=== PATIENT | male | born 1960 | race Caucasian/White ===

== ENCOUNTER → 2018-05-15 | Outpatient (CLI) | payer OTHER ==
[~2018-05-15] MED LIST: ABILIFY PO; ACET325 PO; ACET500 PO; ALBIPROI; ALBIPROI INH; ALBU.083IS IH; ALBU90I INH; ALBU90OI61 INH; ARIP15 PO; ARIP30 PO; ASPI325 PO; ASPI325EC; ASPI81CH PO; ATOM40; AZIT500 PO; BISA10S PR; BUME2 PO; BUSP15; CEFD300 PO; CEPH500 PO; CHOL10002 PO; CLAR500 PO; CLIN300 PO; CLORAZEPATE PO; COMBIVENT RESPIM4 GM INH; CYCL10 PO; DARB200I SQ; DEXGUASY; DIGO.125 PO; DIGO.25 PO; DOC250; DOC250 PO; DOCU100 PO; DOXY100 PO; DULO60 PO; Dok Plus Table1 EACH PO; FERREX 28 TABL1 EACH PO; FERSU250ER PO; FISH1000 PO; FLUSAL1005 IH; FLUSAL1005 INH; FLUSAL5005; FLUSAL5005 IH; FLUSAL5005 INH; FLUT.05NI; FLUT220OIA IH; FOLI1 PO; FURO20 PO; FURO40 PO; FURO80; Fleet Enema132 ML PR; Flonase 0.05% N16 GM; Flovent Diskus50 MCG IH; HALO2 PO; HALO5 PO; HYDACE5 PO; HYDCOR1TC TOP; HYDPAM25 PO; HYDROXYPAM PO; IBUP600 PO; IBUP800; IBUP800 PO; K PHOS PO; K-Phos Origina500 MG PO; KPHOS PO; LACT10SY; LACT10SY PO; LEVFLO500 PO; LEVO750 PO; LISI20 PO; LORA.5 PO; LORA10ER PO; LORA2 PO; LOSA50 PO; MELA3 PO; METF500 PO; METH5; METO5A PO; MIGRELIEF CAPL1 EACH PO; MOM; MORP15ER PO; MS Contin15 MG PO; MULVITB PO; MULVITMIND PO; Micro-K10 MEQ PO; NICO14TP TOP; NICO2 PO; NICO21TP TOP; NORT25; Norco 5-325 Ta1 EACH PO; OLAN20 MM; OMEP20ER PO; OMEPRAZOLE MAGN20 MG PO; OXYGEN; OXYGEN USE; OXYM.05NI; PANT40 PO; PHENYTOIN SODI200 MG PO; POTA10T PO; PRED10 PO; PREG150 PO; PREG50 PO; PROAIR INHALER INH; PROCTOZONE CREAM; PSYL5.85P PO; PT DOESN'T KNOW MEDS; Phospha 250 Ne250 MG PO; Prilosec Otc20 MG PO; Proctocort30 MG RC; Proctosol HC30 GM PR; QUET100; REPLIVA PO; RISP.5 PO; RISP2; RISP2 PO; RISP3 PO; RISP4; Risperidone3 MG PO; SENNP; SENNP PO; SIME40L; SIMV10 PO; SODCHL.65S; SPIR25; SPIR25 PO; SPIR50 PO; SPIRIVA INH; SUMA25 PO; TIOT18 IH; TIOT18 INH; TRIXAICIN TP; VALS80 PO; VENL150ER PO; VENL75ER; Ventolin5 MG/1 ML INH; WARF1 PO; WARF3 PO; WARF4 PO; [UNRECOGNIZED DRUG - OTHER]; [UNRECOGNIZED DRUG - OTHER] TOP; [UNRECOGNIZED DRUG - OTHER] TP; [UNRECOGNIZED DRUG - REMARK]
[2018-05-15 16:13] LABS: Appearance, Urine Clear (Clear); Bilirubin, Urine Neg (Neg); Blood, Urine Neg (Neg); Color, Urine Yellow (P-Yellow); Glucose Qualitative, Urine Neg (Neg); Ketones, Urine Neg (Neg); Leukocyte Esterase, Urine Neg (Neg); Nitrite, Urine Neg (Neg); Protein, Urine Neg (Neg); Specific Gravity, Urine 1.005 (1.003-1.022); Urobilinogen, Urine NORM (Normal)
== END | disposition home or self-care (01) ==
LOC: LAB 12:30 → LAB SHORT 12:30
PROVIDERS: Registered Nurse
DX: Z00.00 Encounter for general adult medical examination without abnormal findings (principal); Z12.5 Encounter for screening for malignant neoplasm of prostate; Z13.6 Encounter for screening for cardiovascular disorders; I10 Essential (primary) hypertension; R35.0 Frequency of micturition
CPT/HCPCS: 81003

== ENCOUNTER → 2018-08-11 | Outpatient (CLI) | payer OTHER ==
[2018-08-13 13:54] LABS: Stool Occult Blood Guaiac 1 Neg (Neg)
[2018-08-13 13:55] LABS: Stool Occult Blood Guaiac 2 Neg (Neg); Stool Occult Blood Guaiac 3 Neg (Neg)
== END | disposition home or self-care (01) ==
LOC: LAB SHORT 15:03 → LAB 15:03
PROVIDERS: Registered Nurse
DX: K92.1 Melena (principal)
CPT/HCPCS: 82270

== ENCOUNTER 2018-11-14 09:13 | Inpatient (IN) | payer OTHER ==
[~2018-11-14] VITALS: Ht 175.3 cm; Wt 110.4 kg
[2018-11-14] MEDS ORDERED: CETI5 PO (09:46)
[2018-11-14] MEDS ORDERED: GABA600 PO (09:47)
[2018-11-14] MEDS ORDERED: Advair Hfa 230-12 GM (09:47)
[2018-11-14] MEDS ORDERED: LISI20 (09:48)
[2018-11-14] MEDS ORDERED: METO5A PO (09:49)
[2018-11-14] MEDS ORDERED: LISI20 PO (09:49)
[2018-11-14 09:51] LABS: BASOPHILS ABSOLUTE AUTO 0.16 K/mm3 (0.00-0.23); BASOPHILS PERCENT AUTO 0 % (0-2); EOSINOPHILS ABSOLUTE AUTO 0.01 K/mm3 (0.00-0.68); EOSINOPHILS PERCENT AUTO 0 % (0-6); Hematocrit 46.8 % (37.0-53.0); Hemoglobin 15.1 g/dL (13.5-17.5); IMMATURE GRAN ABSOLUTE AUTO 0.82 K/mm3 (0.00-0.10); IMMATURE GRAN PERCENT AUTO 2 % (0-1); LYMPHOCYTES ABSOLUTE AUTO 2.05 K/mm3 (0.84-5.20); LYMPHOCYTES PERCENT AUTO 6 % (21-46); MONOCYTES ABSOLUTE AUTO 2.27 K/mm3 (0.16-1.47); MONOCYTES PERCENT AUTO 6 % (4-13); Mean Corpuscular HGB 30.7 pg (26.0-34.0); Mean Corpuscular HGB Conc 32.3 g/dL (31.5-36.5); Mean Corpuscular Volume 95 fL (80-100); Mean Platelet Volume 10.3 fL (9.1-12.4); NEUTROPHILS ABSOLUTE AUTO 30.92 K/mm3 (1.96-9.15); NEUTROPHILS PERCENT AUTO 85 % (41-73); Platelet Count 322 K/mm3 (150-400); RDW Coefficient Variation 14.1 % (11.7-14.2); Red Blood Cell Count 4.92 M/mm3 (4.30-5.90); White Blood Cell Count 36.23 K/mm3 (4.00-11.30)
[2018-11-14] MEDS ORDERED: POTA8 PO (09:51)
[2018-11-14] MEDS ORDERED: PANT40 PO (09:51)
[2018-11-14] MEDS ORDERED: RISP2 PO (09:51)
[2018-11-14 10:01] LABS: Alanine Aminotransfer (ALT/SGP 17 U/L (12-78); Albumin, Blood 2.9 g/dL (3.4-5.0); Albumin/Globulin Ratio 0.7 (0.8-1.8); Alk Phos 52 U/L (50-136); Anion Gap 7 mmol/L (6-16); Aspartate Aminotrans (AST/SGOT 16 U/L (12-37); Bilirubin, Total 0.9 mg/dL (0.1-1.0); Blood Urea Nitrogen 12 mg/dL (8-24); Bun/Creatinine Ratio 12.6 (12.0-20.0); CO2, Blood 27 mmol/L (21-32); Chloride, Blood 100 mmol/L (98-108); Creatinine, Blood 0.95 mg/dL (0.60-1.20); Globulin, Blood 4.1 g/dL (2.2-4.0); Glomerular Filtration Rate >60 (60-); Glucose, Blood 160 mg/dL (70-99); Potassium, Blood 4.3 mmol/L (3.5-5.5); Sodium, Blood 134 mmol/L (136-145)
[2018-11-14 10:44] LABS: International Normalized Ratio 1.05; Prothrombin Time Results 10.8 Sec (9.7-11.5)
[2018-11-14] MEDS ORDERED: TORS10 PO (17:46)
[2018-11-14] MEDS ORDERED: ACET325 PO (17:58)
[2018-11-14] MEDS ORDERED: Antacid Maximu355 ML PO (18:00)
[2018-11-14] MEDS ORDERED: BISA10S PR (18:02)
[2018-11-14] MEDS ORDERED: FISH OIL 1,0001 EAC1 PO (18:04)
[2018-11-14] MEDS ORDERED: CVS DISPOSABLE399 ML PR (18:04)
[2018-11-14] MEDS ORDERED: FURO20 PO (18:10)
[2018-11-14] MEDS ORDERED: MIRALAX17 GM PO (18:11)
[2018-11-14] MEDS ORDERED: HALO.5 PO (18:11)
[2018-11-14] MEDS ORDERED: MELATONIN10 MG PO (18:15)
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
[2018-11-14 23:40] LABS: Source, Urine Voided
[2018-11-15 00:03] LABS: Appearance, Urine Clear (Clear); Bilirubin, Urine Neg (Neg); Blood, Urine 2+ (Neg); Color, Urine Yellow (P-Yellow); Glucose Qualitative, Urine Neg (Neg); Ketones, Urine Neg (Neg); Leukocyte Esterase, Urine Neg (Neg); Nitrite, Urine Neg (Neg); Protein, Urine Neg (Neg); Urobilinogen, Urine NORM (Normal)
[2018-11-15 00:04] LABS: Bacteria Few /hpf; Squamous Epithelial Cells Not Seen /hpf (Few); White Blood Cells, Urine 0-2 /hpf (0-5)
[2018-11-15 05:11] LABS: BASOPHILS PERCENT AUTO 0 % (0-2); EOSINOPHILS PERCENT AUTO 0 % (0-6); Hematocrit 42.8 % (37.0-53.0); Hemoglobin 13.9 g/dL (13.5-17.5); IMMATURE GRAN ABSOLUTE AUTO 0.18 K/mm3 (0.00-0.10); IMMATURE GRAN PERCENT AUTO 1 % (0-1); LYMPHOCYTES ABSOLUTE AUTO 2.98 K/mm3 (0.84-5.20); LYMPHOCYTES PERCENT AUTO 10 % (21-46); MONOCYTES PERCENT AUTO 6 % (4-13); Mean Corpuscular HGB 30.8 pg (26.0-34.0); Mean Corpuscular HGB Conc 32.5 g/dL (31.5-36.5); Mean Corpuscular Volume 95 fL (80-100); Mean Platelet Volume 10.2 fL (9.1-12.4); NEUTROPHILS PERCENT AUTO 82 % (41-73); Platelet Count 313 K/mm3 (150-400); RDW Coefficient Variation 14.3 % (11.7-14.2); RDW Standard Deviation 49.3 fL (35.1-46.3); Red Blood Cell Count 4.51 M/mm3 (4.30-5.90); White Blood Cell Count 29.26 K/mm3 (4.00-11.30)
[2018-11-15 05:40] LABS: Anion Gap 5 mmol/L (6-16); Blood Urea Nitrogen 8 mg/dL (8-24); Bun/Creatinine Ratio 10.6 (12.0-20.0); CO2, Blood 28 mmol/L (21-32); Calcium, Blood 7.9 mg/dL (8.5-10.1); Chloride, Blood 107 mmol/L (98-108); Creatinine, Blood 0.76 mg/dL (0.60-1.20); Glomerular Filtration Rate >60 (60-); Glucose, Blood 101 mg/dL (70-99); Potassium, Blood 3.9 mmol/L (3.5-5.5); Sodium, Blood 140 mmol/L (136-145)
--- NOTE | 2018-11-15 06:29 | NUR ---
*SHIFT SUMMARY* PATIENT IS ALERT AND ORIENTED TO SELF AND PLACE. PATIENT USES CALL LIGHT APPROPRIATELY. PATIENT USES URINAL AT BEDSIDE WITH ASSISTANCE. PATIENT REQUESTED THAT RESPIRATORY THERAPY NOT BE WOKEN UP FOR 0300 NEB TREATMENT. PATIENT AWOKE THIS AM SOB REQUESTING A BREATHING TREATMENT. RESPIRATORY CAME AND EVALUATED PATIENT. PATIENT WAS PLACED ON AN OXIMIZER. PATIENT REQUESTED PRN PAIN MEDICATION TWICE THROUGHOUT SHIFT SEE EMAR. PATIENTS BED ALARM IS LOWERED AND LOCKED WITH CALL LIGHT IN REACH.
--- NOTE | 2018-11-15 18:48 | NUR ---
SHIFT SUMMARY: NO ACUTE CHANGES TO REPORT THIS SHIFT. PT A&O; CALM AND COOPERATIVE WITH CARE. MEDICATED FOR PAIN PER EMAR. FAMILY IN ROOM THIS MORNING. PT UP TO BSC WITH ONE ASSIST. 5L O2 VIA OXYMIZER. PT USES URINAL @ BEDSIDE. IV ABX CONTINUING. REPORT GIVEN TO ONCOMING RN.
--- NOTE | 2018-11-16 05:27 | NUR ---
*SHIFT SUMMARY* PATIENT IS ALERT AND CONFUSED AT TIMES. PATIENT'S SPEECH IS SLOW TO RESPOND, THIS IS PATIENTS BASELINE. PATIENT USES A URINAL AT BEDSIDE WITH SBA. BED ALARM ON, CALL LIGHT WITHIN REACH. PATIENT IS ON AN OXIMIZER. PATIENT SLEPT THROUGHOUT THE NIGHT. NO NEW ACUTE CHANGES TO PATIENT'S STATUS. CALL LIGHT WITHIN REACH, PATIENT USES CALL LIGHT APPROPRIATELY. BED LOWERED AND LOCKED.
[2018-11-16 05:47] LABS: BASOPHILS ABSOLUTE AUTO 0.09 K/mm3 (0.00-0.23); BASOPHILS PERCENT AUTO 1 % (0-2); EOSINOPHILS ABSOLUTE AUTO 0.28 K/mm3 (0.00-0.68); EOSINOPHILS PERCENT AUTO 2 % (0-6); Hemoglobin 14.1 g/dL (13.5-17.5); IMMATURE GRAN ABSOLUTE AUTO 0.07 K/mm3 (0.00-0.10); IMMATURE GRAN PERCENT AUTO 0 % (0-1); LYMPHOCYTES ABSOLUTE AUTO 3.97 K/mm3 (0.84-5.20); LYMPHOCYTES PERCENT AUTO 21 % (21-46); MONOCYTES ABSOLUTE AUTO 1.82 K/mm3 (0.16-1.47); MONOCYTES PERCENT AUTO 10 % (4-13); Mean Corpuscular HGB 29.9 pg (26.0-34.0); Mean Corpuscular HGB Conc 31.3 g/dL (31.5-36.5); Mean Corpuscular Volume 96 fL (80-100); Mean Platelet Volume 10.3 fL (9.1-12.4); NEUTROPHILS ABSOLUTE AUTO 12.28 K/mm3 (1.96-9.15); NEUTROPHILS PERCENT AUTO 66 % (41-73); Platelet Count 376 K/mm3 (150-400); RDW Coefficient Variation 14.6 % (11.7-14.2); RDW Standard Deviation 51.6 fL (35.1-46.3); Red Blood Cell Count 4.71 M/mm3 (4.30-5.90); White Blood Cell Count 18.51 K/mm3 (4.00-11.30)
[2018-11-16 06:33] LABS: Anion Gap 6 mmol/L (6-16); Blood Urea Nitrogen 5 mg/dL (8-24); Bun/Creatinine Ratio 7.6 (12.0-20.0); CO2, Blood 27 mmol/L (21-32); Calcium, Blood 8.7 mg/dL (8.5-10.1); Chloride, Blood 107 mmol/L (98-108); Creatinine, Blood 0.66 mg/dL (0.60-1.20); Glomerular Filtration Rate >60 (60-); Glucose, Blood 97 mg/dL (70-99); Sodium, Blood 140 mmol/L (136-145)
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
[2018-11-17 05:14] LABS: BASOPHILS ABSOLUTE AUTO 0.11 K/mm3 (0.00-0.23); BASOPHILS PERCENT AUTO 1 % (0-2); EOSINOPHILS ABSOLUTE AUTO 0.42 K/mm3 (0.00-0.68); EOSINOPHILS PERCENT AUTO 4 % (0-6); Hematocrit 46.5 % (37.0-53.0); Hemoglobin 14.7 g/dL (13.5-17.5); IMMATURE GRAN ABSOLUTE AUTO 0.03 K/mm3 (0.00-0.10); IMMATURE GRAN PERCENT AUTO 0 % (0-1); LYMPHOCYTES ABSOLUTE AUTO 3.42 K/mm3 (0.84-5.20); LYMPHOCYTES PERCENT AUTO 31 % (21-46); MONOCYTES ABSOLUTE AUTO 1.25 K/mm3 (0.16-1.47); MONOCYTES PERCENT AUTO 11 % (4-13); Mean Corpuscular HGB 30.6 pg (26.0-34.0); Mean Corpuscular HGB Conc 31.6 g/dL (31.5-36.5); Mean Corpuscular Volume 97 fL (80-100); NEUTROPHILS ABSOLUTE AUTO 5.91 K/mm3 (1.96-9.15); NEUTROPHILS PERCENT AUTO 53 % (41-73); Platelet Count 396 K/mm3 (150-400); RDW Coefficient Variation 14.7 % (11.7-14.2); RDW Standard Deviation 53.2 fL (35.1-46.3); White Blood Cell Count 11.14 K/mm3 (4.00-11.30)
--- NOTE | 2018-11-17 06:50 | NUR ---
*SHIFT SUMMARY* PATIENT ALERT AND ORIENTED TO SELF. PATIENT REQUESTED PAIN MEDICATION TWICE FOR HEADACHE. PATIENT IS A SBA TO USE URINAL. PATIENT USES CALL LIGHT APPROPRIATELY. PATIENT SLEPT WELL THROUGHOUT THE NIGHT. NO NEW CHANGES IN STATUS PATIENT IS STILL ON 5L WITH OXIMIZER. PATIENT SEEMS TO COUGH A LOT WITH SWALLOWING. WILL PASS ALONG TO DAYSHIFT RN TO REQUEST A SPEECH EVALUATION. CALL LIGHT WITHIN REACH, BED LOWERED AND LOCKED. WITH ALARM ON.
--- NOTE | 2018-11-17 13:24 | NUR ---
Sukhdev was alert, friendly and talkative. No indications of physical pain or anxiety. He responded favorably to social attention, humor and inspirational encouragement. Fidel adheres to a conventional gnosticist framework of understanding with standard modes of expression and practice. He is knowledgeable of the scripture, and enjoys discussing theology and life. I provided active listening, pastoral companionship and audible prayer for restored strength, healing and peace. Fidel verbalized appreciation.
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
--- NOTE | 2018-11-17 17:20 | NUR ---
AMBULATE IN [place]UT[place] WITH PT, OXIMIZER ON @ 2L. PT WALKS W LIMP D/T OLD INJURY, AMBULATE APPROX 200 FT, MILDLY SOB HOWEVER BIOX 90-93%, PLACED ON RA, BIOX CONT 90-94%, WILL CONT ON RA & MX.
--- NOTE | 2018-11-18 04:46 | NUR ---
SHIFT SUMMARY: PT IS ALERT AND ORIENTED. PT IS CALM AND COOPERATIVE WITH CARE. PT CALLS APPROPRIATELY. PT IS A STANDBY ASSIST FOR TRANSFERS. PT REPORTS GEORGE PAIN, GAVE PRN TYLENOL. PT REQUESTED SLEEP AID, GAVE PRN MELATONIN. PT REPORTS SOB UPON EXERTION, O2 2 L PRN. PT DENIES NAUSEA AND VOMITING. PT SLEPT MUCH OF THE NIGHT WHEN NOT DISTURBED. NO ACUTE CHANGES OR COMPLICATIONS THIS SHIFT. BED IN LOW POSITION, CALL LIGHT WITHIN REACH. WILL REPORT TO DAY NURSE.
[2018-11-18 05:47] LABS: Anion Gap 8 mmol/L (6-16); Blood Urea Nitrogen 8 mg/dL (8-24); Bun/Creatinine Ratio 12.2 (12.0-20.0); CO2, Blood 27 mmol/L (21-32); Calcium, Blood 8.8 mg/dL (8.5-10.1); Chloride, Blood 105 mmol/L (98-108); Creatinine, Blood 0.66 mg/dL (0.60-1.20); Glomerular Filtration Rate >60 (60-); Glucose, Blood 108 mg/dL (70-99); Potassium, Blood 4.4 mmol/L (3.5-5.5); Sodium, Blood 140 mmol/L (136-145)
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
--- NOTE | 2018-11-18 16:28 | NUR ---
193 hr was incorrect. put new/correct hr in the computer
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
--- NOTE | 2018-11-19 15:11 | NUR ---
DISCHARGE NOTE HANDOFF CALLED TO SUKHI AT [facility]. ORDERS AND CHARTS FAXED TO [facility]. [facility] ARRIVED WITH OXYGEN TO TRANSPORT THE PT TO [facility]. NO IV ACCESS ON PT. PT'S POSSESSIONS BAGGED AND PROVIDED TO PT. PT DRESSED IN PERSONAL CLOTHES . NURSE SUKHI HAD NO FURTHER QUESTIONS. THE PT HAD NO FURTHER QUESTIONS.
[2018-11-19] MEDS ORDERED: ALBU2.5V5 NEB (15:40)
[2018-11-19] MEDS ORDERED: Augmentin 875-1 EACH PO (15:42)
[2018-11-19] MEDS ORDERED: LISI20 (15:44)
[2018-11-19] MEDS ORDERED: Acidophilus La100 GM (15:45)
[2018-11-19] MEDS ORDERED: PRED20 (15:46)
== END 2018-11-19 14:50 | disposition home or self-care (01) | DRG 177 ==
LOC: ER 09:13 → MEDS 10:53 → ENPENDDIS 11-19 11:12 → MEDS 11-19 14:50
PROVIDERS: Emergency Medicine; Internal Medicine; ADMIT Hospitalist
DX: J69.0 Pneumonitis due to inhalation of food and vomit (principal); J96.21 Acute and chronic respiratory failure with hypoxia; J44.9 Chronic obstructive pulmonary disease, unspecified; E11.9 Type 2 diabetes mellitus without complications; Z79.4 Long term (current) use of insulin; I10 Essential (primary) hypertension; G89.4 Chronic pain syndrome; Z86.711 Personal history of pulmonary embolism; Z79.01 Long term (current) use of anticoagulants; E78.5 Hyperlipidemia, unspecified; Z87.820 Personal history of traumatic brain injury; F03.90 Unspecified dementia, unspecified severity, without behavioral disturbance, psychotic disturbance, mood disturbance, and anxiety; K59.09 Other constipation; G43.909 Migraine, unspecified, not intractable, without status migrainosus; J13 Pneumonia due to Streptococcus pneumoniae
CPT/HCPCS: 36415; 71045; 80048; 80053; 81001; 82947; 83605; 84145; 85025; 85610; 85730; 87040; 87070; 87077; 87086; 87186; 92526; 92610; 93005; 93010; 94640; 94760; 94761; 96365; 99285-25; G8996; G8997; J0456; J0696; J1650; J2543; J7050; J7120

== ENCOUNTER → 2020-03-25 | Outpatient (CLI) | payer OTHER ==
[~2020-03-25] MED LIST changes: +ALBU2.5V5 NEB; +Acidophilus La100 GM; +Advair Hfa 230-12 GM; +Antacid Maximu355 ML PO; +Augmentin 875-1 EACH PO; +CETI5 PO; +CVS DISPOSABLE399 ML PR; +FISH OIL 1,0001 EAC1 PO; +GABA600 PO; +HALO.5 PO; +LISI20; +MELATONIN10 MG PO; +MIRALAX17 GM PO; +POTA8 PO; +PRED20; +TORS10 PO
[2020-03-25 13:09] LABS: Alanine Aminotransfer (ALT/SGP 14 U/L (12-78); Albumin, Blood 3.9 g/dL (3.4-5.0); Alk Phos 63 U/L (50-136); Anion Gap 6 mmol/L (6-16); Aspartate Aminotrans (AST/SGOT 12 U/L (12-37); Bilirubin, Direct 0.1 mg/dL (0.0-0.3); Bilirubin, Indirect 0.5 mg/dL (0.1-0.7); Bilirubin, Total 0.6 mg/dL (0.1-1.0); Blood Urea Nitrogen 5 mg/dL (8-24); Bun/Creatinine Ratio 7.3 (12.0-20.0); CHOL/HDL RATIO 4.4; CO2, Blood 30 mmol/L (21-32); Calcium, Blood 9.2 mg/dL (8.5-10.1); Chloride, Blood 101 mmol/L (98-108); Cholesterol 232 mg/dL (50-200); Creatinine, Blood 0.68 mg/dL (0.60-1.20); Glomerular Filtration Rate >60 (60-); Glucose, Blood 79 mg/dL (70-99); HDL Cholesterol 53 mg/dL (>39); LDL/HDL RATIO 2.9; Low Density Lipoprotein Chol 155 mg/dL (0-110); Phosphorus, Blood 2.5 mg/dL (2.5-4.9); Potassium, Blood 4.6 mmol/L (3.5-5.5); Sodium, Blood 137 mmol/L (136-145); Total Protein, Blood 7.9 g/dL (6.4-8.2); Triglycerides 121 mg/dL (30-160); Very Low Density Lipoprot Chol 24 mg/dL (6-32)
[2020-03-25 13:53] LABS: Protein, Urine Quantitative 5.3 mg/dL (0.0-11.9)
[2020-03-25 13:55] LABS: Microalbumin, Urine Quant. 6.46 mg/L (0.000-20.000)
== END | disposition home or self-care (01) ==
LOC: LAB SHORT 10:18 → LAB 10:18
PROVIDERS: Internal Medicine Nephrology
DX: N18.2 Chronic kidney disease, stage 2 (mild) (principal); N25.81 Secondary hyperparathyroidism of renal origin; E55.9 Vitamin D deficiency, unspecified; E78.00 Pure hypercholesterolemia, unspecified; R80.9 Proteinuria, unspecified; R76.9 Abnormal immunological finding in serum, unspecified; R94.5 Abnormal results of liver function studies; R94.6 Abnormal results of thyroid function studies
CPT/HCPCS: 80053; 80061; 81050; 82043; 82248; 82306; 82570; 83970; 84100; 84156; 85018

== ENCOUNTER 2020-06-06 05:34 | Day surgery (SDC) | payer OTHER ==
[~2020-06-06] VITALS: Ht 177.8 cm; Wt 93.0 kg
[~2020-06-06 05:34] MED LIST changes: +COMBIVENT NEB; +FISH OIL PO; +IMITREX25 MG PO; +LOPE2C PO; +MELATONIN5 M1 PO; +MILK OF MA400 MG/51 PO; +MIRALAX17 G2 PO; +PHOSPHASODA; +Preparation H26 GM TOP; +Prinivil10 MG PO; +RISP1 PO; +SIMETHICONE PO; +VITAMIN D3125 MC4 PO
[2020-06-06] MEDS ORDERED: ACET500 PO (06:30)
[2020-06-06] MEDS ORDERED: ASPI81CH PO (06:31)
[2020-06-06] MEDS ORDERED: ZYRTEC10 M2 PO (06:32)
[2020-06-06] MEDS ORDERED: FISH OIL/OMEGA 3 PO (06:35)
[2020-06-06] MEDS ORDERED: FURO20 PO (06:36)
[2020-06-06] MEDS ORDERED: GABA300 PO (06:37)
[2020-06-06] MEDS ORDERED: Prinivil10 MG PO (06:39)
[2020-06-06] MEDS ORDERED: PANT40 PO (06:40)
[2020-06-06] MEDS ORDERED: POTA8 PO (06:41)
[2020-06-06] MEDS ORDERED: RISP.5 PO (06:42)
[2020-06-06] MEDS ORDERED: RISP1 PO (06:42)
[2020-06-06] MEDS ORDERED: [UNRECOGNIZED DRUG - OTHER] PO (06:43)
[2020-06-06] MEDS ORDERED: ALBU3IS INH (06:46)
[2020-06-06] MEDS ORDERED: BISA10S PR (06:47)
[2020-06-06] MEDS ORDERED: [UNRECOGNIZED DRUG - OTHER] (06:47)
[2020-06-06] MEDS ORDERED: HALOPERIDOL PO (06:49)
[2020-06-06] MEDS ORDERED: IPRAT-ALBUT 0.5-3 ML INH (06:51)
[2020-06-06] MEDS ORDERED: LOPERAMIDE2 MG PO (06:52)
[2020-06-06] MEDS ORDERED: MELATONIN10 M6 PO (06:53)
[2020-06-06] MEDS ORDERED: MILK OF MA400 MG/51 PO (06:54)
[2020-06-06] MEDS ORDERED: Preparation H26 GM (06:55)
[2020-06-06] MEDS ORDERED: SUMA25 PO (06:57)
--- NOTE | 2020-06-06 07:02 | NUR ---
History, Chart, Medications and Allergies reviewed before start of procedure. Patient confirms NPO status and agrees with scheduled surgery. Lungs coarse with wet cough noted. 02 3l/NC. Denies SOB. Pre-Op teaching done. Pt verbalizes understanding.
--- NOTE | 2020-06-06 11:18 | NUR ---
PATIENT RETURNING TO CARE FACILITY. CALLED AND DISCUSSED DISCHARGE WITH FACILILTY STAFF. THEY REPORT THE JUST NEED MED SCRIPT AND HIS DISCHARGE IN STRUCTIONS FOR CARE. INSTRUCTED STAFF THAT DISCHARGE INSTRUCTIONS SENT WITH PATIENT. [facility] ARRANGED BY [facility]. KALANI TOLERATING PO. MEDICATED FOR PAIN. SLIGHTLY UNSTEADY ON FEET. PT REPOTS NOPRMAL FOR HIM.
== END 2020-06-06 22:54 | disposition home or self-care (01) ==
LOC: ORSCMMR 05:34 → ORD 07:30 → ORSCMMR 22:54
PROVIDERS: Surgery
PROC: 0HX8XZZ Transfer Buttock Skin, External Approach (ICD-10-PCS; principal; 2020-06-06 07:30)
PROC: 0JB90ZZ Excision of Buttock Subcutaneous Tissue and Fascia, Open Approach (ICD-10-PCS; principal; 2020-06-06 07:30)
DX: L05.02 Pilonidal sinus with abscess (principal); I10 Essential (primary) hypertension; J44.9 Chronic obstructive pulmonary disease, unspecified; Z99.81 Dependence on supplemental oxygen; B19.20 Unspecified viral hepatitis C without hepatic coma; Z86.73 Personal history of transient ischemic attack (TIA), and cerebral infarction without residual deficits; Z79.82 Long term (current) use of aspirin; Z79.899 Other long term (current) drug therapy
CPT/HCPCS: 82947; 88304; A9270-GY; J0694; J1100; J1885; J2250; J2405; J2704; J2710; J3010; J7120

== ENCOUNTER → 2020-07-29 | Outpatient (CLI) | payer OTHER ==
[~2020-07-29] MED LIST changes: +ALBU3IS INH; +FISH OIL/OMEGA 3 PO; +GABA300 PO; +HALOPERIDOL PO; +IPRAT-ALBUT 0.5-3 ML INH; +LOPERAMIDE2 MG PO; +MELATONIN10 M6 PO; +Preparation H26 GM; +ZYRTEC10 M2 PO; +[UNRECOGNIZED DRUG - OTHER]; +[UNRECOGNIZED DRUG - OTHER] PO
[2020-07-29 10:32] LABS: Hematocrit 45.7 % (37.0-53.0); Hemoglobin 14.7 g/dL (13.5-17.5)
[2020-07-29 11:00] LABS: Albumin, Blood 3.5 g/dL (3.4-5.0); Anion Gap 8 mmol/L (6-16); Blood Urea Nitrogen 7 mg/dL (8-24); Bun/Creatinine Ratio 9.1 (12.0-20.0); CO2, Blood 25 mmol/L (21-32); Calcium, Blood 8.9 mg/dL (8.5-10.1); Chloride, Blood 104 mmol/L (98-108); Creatinine, Blood 0.77 mg/dL (0.60-1.20); Glomerular Filtration Rate >60 (60-); Glucose, Blood 107 mg/dL (70-99); Potassium, Blood 4.6 mmol/L (3.5-5.5); Sodium, Blood 137 mmol/L (136-145)
== END | disposition home or self-care (01) ==
LOC: LAB 08:57 → LAB SHORT 08:57
PROVIDERS: Internal Medicine Nephrology
DX: N18.2 Chronic kidney disease, stage 2 (mild) (principal); D63.1 Anemia in chronic kidney disease
CPT/HCPCS: 80069; 85014; 85018

== ENCOUNTER → 2020-08-08 | Outpatient (CLI) | payer OTHER ==
[2020-08-08 15:37] LABS: CHOL/HDL RATIO 3.2; Cholesterol 190 mg/dL (50-200); HDL Cholesterol 59 mg/dL (>39); LDL/HDL RATIO 1.9; Low Density Lipoprotein Chol 113 mg/dL (0-110); Triglycerides 92 mg/dL (30-160); Very Low Density Lipoprot Chol 18 mg/dL (6-32)
== END | disposition home or self-care (01) ==
LOC: LAB SHORT 12:40 → LAB 12:40
PROVIDERS: Family Medicine
DX: E78.5 Hyperlipidemia, unspecified (principal)
CPT/HCPCS: 80061

== ENCOUNTER → 2020-08-11 | Outpatient (CLI) | payer OTHER ==
[2020-08-11 15:07] LABS: Hemoglobin 15.7 g/dL (13.5-17.5); Mean Corpuscular Volume 100 fL (80-100); Mean Platelet Volume 10.4 fL (9.1-12.4); Platelet Count 564 K/mm3 (150-400); RDW Coefficient Variation 13.7 % (11.7-14.2); RDW Standard Deviation 50.3 fL (35.1-46.3); Red Blood Cell Count 4.91 M/mm3 (4.30-5.90); White Blood Cell Count 12.56 K/mm3 (4.00-11.30)
[2020-08-11 15:37] LABS: Alanine Aminotransfer (ALT/SGP 17 U/L (12-78); Albumin, Blood 3.9 g/dL (3.4-5.0); Alk Phos 60 U/L (50-136); Anion Gap 5 mmol/L (6-16); Aspartate Aminotrans (AST/SGOT 17 U/L (12-37); Bilirubin, Total 0.4 mg/dL (0.1-1.0); Blood Urea Nitrogen 5 mg/dL (8-24); CO2, Blood 28 mmol/L (21-32); Calcium, Blood 9.2 mg/dL (8.5-10.1); Chloride, Blood 102 mmol/L (98-108); Creatinine, Blood 0.83 mg/dL (0.60-1.20); Globulin, Blood 4.1 g/dL (2.2-4.0); Glomerular Filtration Rate >60 (60-); Glucose, Blood 104 mg/dL (70-99); Potassium, Blood 4.6 mmol/L (3.5-5.5); Sodium, Blood 135 mmol/L (136-145)
== END | disposition home or self-care (01) ==
LOC: LAB SHORT 14:03 → LAB 14:03
PROVIDERS: Family Medicine
DX: I10 Essential (primary) hypertension (principal)
CPT/HCPCS: 80053; 85027

== ENCOUNTER → 2020-08-18 | Outpatient (CLI) | payer OTHER ==
[2020-08-18 12:18] LABS: Source, Urine Clean Catch
[2020-08-18 13:48] LABS: Bilirubin, Urine Neg (Neg); Blood, Urine Neg (Neg); Glucose Qualitative, Urine Neg (Neg); Ketones, Urine Neg (Neg); Leukocyte Esterase, Urine Neg (Neg); Nitrite, Urine Neg (Neg); Protein, Urine Neg (Neg); Specific Gravity, Urine 1.005 (1.003-1.022); Urobilinogen, Urine NORM (Normal)
[2020-08-18 14:02] LABS: Appearance, Urine Clear (Clear); Color, Urine Yellow (P-Yellow)
== END | disposition home or self-care (01) ==
LOC: LAB SHORT 12:16 → LAB 12:16
PROVIDERS: Family Medicine
DX: D72.829 Elevated white blood cell count, unspecified (principal)
CPT/HCPCS: 81003

== ENCOUNTER → 2020-11-07 | Outpatient (CLI) | payer OTHER | END | disposition home or self-care (01) | LOC: LAB SHORT 12:38 → LAB 12:38 | PROVIDERS: Psychiatry & Neurology Psychiatry | DX: Z51.81 Encounter for therapeutic drug level monitoring (principal); Z79.899 Other long term (current) drug therapy | CPT/HCPCS: 80164 ==

== ENCOUNTER → 2020-11-10 | Outpatient (CLI) | payer OTHER ==
[2020-11-10 16:08] LABS: Source, Urine Clean Catch
[2020-11-10 16:51] LABS: Appearance, Urine Clear (Clear); Bilirubin, Urine Neg (Neg); Blood, Urine Neg (Neg); Color, Urine Yellow (P-Yellow); Glucose Qualitative, Urine Neg (Neg); Ketones, Urine Neg (Neg); Leukocyte Esterase, Urine Neg (Neg); Nitrite, Urine Neg (Neg); Protein, Urine Neg (Neg); Specific Gravity, Urine 1.005 (1.003-1.022); Urobilinogen, Urine NORM (Normal)
== END | disposition home or self-care (01) ==
LOC: LAB SHORT 16:06
PROVIDERS: Family Medicine
DX: N39.0 Urinary tract infection, site not specified (principal)
CPT/HCPCS: 81003

== ENCOUNTER → 2021-01-16 | Outpatient (CLI) | payer OTHER ==
[2021-01-16 13:43] LABS: Potassium, Blood 4.3 mmol/L (3.5-5.5)
== END | disposition home or self-care (01) ==
LOC: LAB 10:40 → LAB SHORT 10:40
PROVIDERS: Family Medicine
DX: I10 Essential (primary) hypertension (principal)
CPT/HCPCS: 80051

== ENCOUNTER → 2021-02-07 | Outpatient (CLI) | payer OTHER ==
[2021-02-09 12:12] LABS: Source, Urine Clean Catch
[2021-02-09 13:16] LABS: Appearance, Urine Clear (Clear); Bilirubin, Urine Neg (Neg); Blood, Urine 1+ (Neg); Color, Urine Yellow (P-Yellow); Glucose Qualitative, Urine Neg (Neg); Ketones, Urine Neg (Neg); Leukocyte Esterase, Urine Neg (Neg); Nitrite, Urine Neg (Neg); Protein, Urine Neg (Neg); Urobilinogen, Urine NORM (Normal)
[2021-02-09 13:33] LABS: Bacteria Few /hpf; Squamous Epithelial Cells Rare /hpf (Few); White Blood Cells, Urine Not Seen /hpf (0-5)
== END | disposition home or self-care (01) ==
LOC: LAB SHORT 11:32 → LAB 11:32
PROVIDERS: Family Medicine
DX: N39.0 Urinary tract infection, site not specified (principal)
CPT/HCPCS: 81001

== ENCOUNTER → 2021-03-31 | Outpatient (CLI) | payer OTHER ==
[2021-03-31 15:13] LABS: Protein, Urine Quantitative 5.7 mg/dL (0.0-11.9)
[2021-03-31 15:25] LABS: Microalbumin, Urine Quant. <5.000 mg/L (0.000-20.000)
== END ==
LOC: LAB 09:39 → LAB SHORT 09:39
PROVIDERS: Internal Medicine Nephrology
DX: N18.30 Chronic kidney disease, stage 3 unspecified (principal); D63.1 Anemia in chronic kidney disease; N25.81 Secondary hyperparathyroidism of renal origin; E55.9 Vitamin D deficiency, unspecified; E78.00 Pure hypercholesterolemia, unspecified; R80.9 Proteinuria, unspecified
CPT/HCPCS: 81050; 82043; 82570; 84156

== ENCOUNTER → 2021-04-24 | Outpatient (CLI) | payer OTHER ==
[2021-04-24 12:38] LABS: Source, Urine Clean Catch
[2021-04-24 13:31] LABS: Appearance, Urine Clear (Clear); Bilirubin, Urine Neg (Neg); Blood, Urine 3+ (Neg); Color, Urine Yellow (P-Yellow); Glucose Qualitative, Urine Neg (Neg); Ketones, Urine Neg (Neg); Leukocyte Esterase, Urine Neg (Neg); Nitrite, Urine Neg (Neg); Protein, Urine 1+ (Neg); Urobilinogen, Urine 1+ (Normal); pH, Urine 6.5 (5.0-8.0)
[2021-04-24 13:57] LABS: Bacteria Mod /hpf; Red Blood Cells, Urine 0-2 /hpf (0-2); Squamous Epithelial Cells Rare /hpf (Few); White Blood Cells, Urine 0-2 /hpf (0-5)
== END ==
LOC: LAB 12:35 → LAB SHORT 12:35
PROVIDERS: Family Medicine
DX: N39.0 Urinary tract infection, site not specified (principal)
CPT/HCPCS: 81001; 87077; 87086; 87186

== ENCOUNTER → 2021-05-02 | Outpatient (CLI) | payer OTHER ==
[2021-05-02 10:33] LABS: Source, Urine Clean Catch
[2021-05-02 10:37] LABS: Appearance, Urine Clear (Clear); Bilirubin, Urine Neg (Neg); Blood, Urine 1+ (Neg); Color, Urine Yellow (P-Yellow); Glucose Qualitative, Urine Neg (Normal); Ketones, Urine Neg (Neg); Leukocyte Esterase, Urine Neg (Neg); Nitrite, Urine Neg (Neg); Protein, Urine Neg (Neg); Urobilinogen, Urine NORM (Normal)
[2021-05-02 10:44] LABS: Bacteria Not Seen /hpf; Red Blood Cells, Urine Rare /hpf (0-2); Squamous Epithelial Cells Rare /hpf (Few); White Blood Cells, Urine Not Seen /hpf (0-5)
== END | disposition home or self-care (01) ==
LOC: LAB EV 10:31 → LAB SHORT 10:31
PROVIDERS: Family Medicine
DX: N39.0 Urinary tract infection, site not specified (principal)
CPT/HCPCS: 81001

== ENCOUNTER → 2021-06-30 | Outpatient (CLI) | payer OTHER ==
[2021-06-30 19:36] LABS: Bilirubin, Urine Neg (Neg); Blood, Urine Neg (Neg); Glucose Qualitative, Urine Neg (Neg); Ketones, Urine Neg (Neg); Leukocyte Esterase, Urine Neg (Neg); Nitrite, Urine Neg (Neg); Protein, Urine Neg (Neg); Urobilinogen, Urine NORM (Normal)
[2021-06-30 19:45] LABS: Appearance, Urine Clear (Clear); Color, Urine Pale Yellow (P-Yellow)
== END | disposition home or self-care (01) ==
LOC: LAB 19:30 → LAB SHORT 19:30
PROVIDERS: Family Medicine
DX: N39.0 Urinary tract infection, site not specified (principal)
CPT/HCPCS: 81003

== ENCOUNTER → 2021-08-01 | Outpatient (CLI) | payer OTHER ==
[2021-08-01 13:35] LABS: Hematocrit 49.6 % (37.0-53.0); Hemoglobin 16.3 g/dL (13.5-17.5); Mean Corpuscular HGB 33.2 pg (26.0-34.0); Mean Corpuscular HGB Conc 32.9 g/dL (31.5-36.5); Mean Corpuscular Volume 101 fL (80-100); Mean Platelet Volume 11.7 fL (9.1-12.4); Platelet Count 269 K/mm3 (150-400); RDW Coefficient Variation 13.2 % (11.7-14.2); RDW Standard Deviation 49.5 fL (35.1-46.3); Red Blood Cell Count 4.91 M/mm3 (4.30-5.90); White Blood Cell Count 10.05 K/mm3 (4.00-11.30)
[2021-08-01 14:33] LABS: Alanine Aminotransfer (ALT/SGP 21 U/L (12-78); Albumin, Blood 3.5 g/dL (3.4-5.0); Albumin/Globulin Ratio 0.9 (0.8-1.8); Alk Phos 51 U/L (50-136); Anion Gap 7 mmol/L (6-16); Aspartate Aminotrans (AST/SGOT 18 U/L (12-37); Bilirubin, Total 0.9 mg/dL (0.1-1.0); Blood Urea Nitrogen 9 mg/dL (8-24); Bun/Creatinine Ratio 13.2 (12.0-20.0); CO2, Blood 31 mmol/L (21-32); Calcium, Blood 9.2 mg/dL (8.5-10.1); Chloride, Blood 101 mmol/L (98-108); Cholesterol 211 mg/dL (50-200); Creatinine, Blood 0.68 mg/dL (0.60-1.20); Globulin, Blood 4.1 g/dL (2.2-4.0); Glomerular Filtration Rate >60 (60-); Glucose, Blood 96 mg/dL (70-99); HDL Cholesterol 70 mg/dL (>39); LDL/HDL RATIO 1.7; Low Density Lipoprotein Chol 122 mg/dL (0-110); Potassium, Blood 4.2 mmol/L (3.5-5.5); Prostate Specific Antigen 0.578 ng/mL (0.000-4.000); Sodium, Blood 139 mmol/L (136-145); Total Protein, Blood 7.6 g/dL (6.4-8.2); Triglycerides 97 mg/dL (30-160); Very Low Density Lipoprot Chol 19 mg/dL (6-32)
== END | disposition home or self-care (01) ==
LOC: LAB 12:10 → LAB SHORT 12:10
PROVIDERS: Family Medicine
DX: E78.5 Hyperlipidemia, unspecified (principal); N40.0 Benign prostatic hyperplasia without lower urinary tract symptoms
CPT/HCPCS: 80053; 80061; 84153; 85027

== ENCOUNTER → 2021-10-10 | Outpatient (CLI) | payer OTHER | LOC: LAB SHORT 09:10 | PROVIDERS: Psychiatry & Neurology Psychiatry | DX: Z51.81 Encounter for therapeutic drug level monitoring (principal); Z79.899 Other long term (current) drug therapy; Z88.2 Allergy status to sulfonamides; Z91.011 Allergy to milk products | CPT/HCPCS: 80164 ==

== ENCOUNTER → 2021-11-15 | Outpatient (CLI) | payer OTHER ==
[2021-11-15 13:17] LABS: Osmolality, Serum 286 mos/KG (275-300)
[2021-11-15 13:34] LABS: BASOPHILS ABSOLUTE AUTO 0.07 K/mm3 (0.00-0.23); BASOPHILS PERCENT AUTO 1 % (0-2); EOSINOPHILS ABSOLUTE AUTO 0.14 K/mm3 (0.00-0.68); EOSINOPHILS PERCENT AUTO 2 % (0-6); Hematocrit 44.4 % (37.0-53.0); Hemoglobin 14.7 g/dL (13.5-17.5); IMMATURE GRAN ABSOLUTE AUTO 0.01 K/mm3 (0.00-0.10); IMMATURE GRAN PERCENT AUTO 0 % (0-1); LYMPHOCYTES PERCENT AUTO 29 % (21-46); MONOCYTES ABSOLUTE AUTO 1.57 K/mm3 (0.16-1.47); MONOCYTES PERCENT AUTO 21 % (4-13); Mean Corpuscular HGB 33.6 pg (26.0-34.0); Mean Corpuscular HGB Conc 33.1 g/dL (31.5-36.5); Mean Corpuscular Volume 102 fL (80-100); Mean Platelet Volume 11.6 fL (9.1-12.4); NEUTROPHILS ABSOLUTE AUTO 3.65 K/mm3 (1.96-9.15); NEUTROPHILS PERCENT AUTO 48 % (41-73); Platelet Count 289 K/mm3 (150-400); RDW Coefficient Variation 13.2 % (11.7-14.2); RDW Standard Deviation 49.1 fL (35.1-46.3); Red Blood Cell Count 4.37 M/mm3 (4.30-5.90); White Blood Cell Count 7.64 K/mm3 (4.00-11.30)
[2021-11-15 13:38] LABS: Alanine Aminotransfer (ALT/SGP 16 U/L (12-78); Albumin/Globulin Ratio 0.8 (0.8-1.8); Alk Phos 47 U/L (50-136); Anion Gap 6 mmol/L (6-16); Aspartate Aminotrans (AST/SGOT 20 U/L (12-37); Bilirubin, Direct 0.1 mg/dL (0.0-0.3); Bilirubin, Indirect 0.6 mg/dL (0.1-0.7); Bilirubin, Total 0.7 mg/dL (0.1-1.0); Blood Urea Nitrogen 9 mg/dL (8-24); Bun/Creatinine Ratio 14.9 (12.0-20.0); CO2, Blood 29 mmol/L (21-32); Chloride, Blood 98 mmol/L (98-108); Globulin, Blood 3.8 g/dL (2.2-4.0); Glomerular Filtration Rate >60 (60-); Glucose, Blood 111 mg/dL (70-99); Phosphorus, Blood 2.2 mg/dL (2.5-4.9); Potassium, Blood 3.9 mmol/L (3.5-5.5); Sodium, Blood 133 mmol/L (136-145); Total Protein, Blood 6.8 g/dL (6.4-8.2); Uric Acid, Blood 5.6 mg/dL (3.5-7.2)
== END | disposition home or self-care (01) ==
LOC: LAB 08:15 → LAB SHORT 08:15
PROVIDERS: Internal Medicine Nephrology
DX: N18.2 Chronic kidney disease, stage 2 (mild) (principal); D63.1 Anemia in chronic kidney disease; N25.81 Secondary hyperparathyroidism of renal origin; E55.9 Vitamin D deficiency, unspecified; E78.00 Pure hypercholesterolemia, unspecified; R76.9 Abnormal immunological finding in serum, unspecified; R94.5 Abnormal results of liver function studies; R94.6 Abnormal results of thyroid function studies
CPT/HCPCS: 80053; 82248; 83930; 83935; 84100; 84550; 85025

== ENCOUNTER → 2021-11-16 | Outpatient (CLI) | payer OTHER ==
[2021-11-16 20:31] LABS: Protein, Urine Quantitative 6.8 mg/dL (0.0-11.9)
[2021-11-16 20:37] LABS: Microalbumin, Urine Quant. <5.000 mg/L (0.000-20.000)
== END | disposition home or self-care (01) ==
LOC: LAB SHORT 18:57
PROVIDERS: Internal Medicine Nephrology
DX: N18.2 Chronic kidney disease, stage 2 (mild) (principal); D63.1 Anemia in chronic kidney disease; N25.81 Secondary hyperparathyroidism of renal origin; E55.9 Vitamin D deficiency, unspecified; E78.00 Pure hypercholesterolemia, unspecified; R76.9 Abnormal immunological finding in serum, unspecified; R94.5 Abnormal results of liver function studies; R94.6 Abnormal results of thyroid function studies
CPT/HCPCS: 81050; 82043; 82570; 84156

== ENCOUNTER 2021-11-29 16:16 | Emergency (ER) | payer OTHER ==
[~2021-11-29] VITALS: Ht 172.7 cm; Wt 108.9 kg
== END 2021-11-29 18:15 | disposition home or self-care (01) ==
LOC: ER 16:16
DX: S09.90XA Unspecified injury of head, initial encounter (principal); J44.9 Chronic obstructive pulmonary disease, unspecified; Z88.2 Allergy status to sulfonamides; Z91.011 Allergy to milk products; Z79.899 Other long term (current) drug therapy; W18.30XA Fall on same level, unspecified, initial encounter
CPT/HCPCS: 93005; 93010; 99283-25

== ENCOUNTER → 2021-12-11 | Outpatient (CLI) | payer OTHER ==
[2021-12-11 19:05] LABS: Source, Urine Clean Catch
[2021-12-11 19:52] LABS: Bilirubin, Urine Neg (Neg); Blood, Urine Neg (Neg); Glucose Qualitative, Urine Neg (Neg); Ketones, Urine Neg (Neg); Leukocyte Esterase, Urine 1+ (Neg); Nitrite, Urine Neg (Neg); Protein, Urine 1+ (Neg); Urobilinogen, Urine NORM (Normal)
[2021-12-11 20:00] LABS: Color, Urine Pale Yellow (P-Yellow)
[2021-12-11 20:01] LABS: Appearance, Urine Hazy (Clear); Bacteria Rare /hpf; Red Blood Cells, Urine 0-2 /hpf (0-2); Squamous Epithelial Cells Rare /hpf (Few)
== END | disposition home or self-care (01) ==
LOC: LAB SHORT 19:03
PROVIDERS: Family Medicine
DX: N39.0 Urinary tract infection, site not specified (principal)
CPT/HCPCS: 81001; 87086

== ENCOUNTER → 2021-12-27 | Outpatient (CLI) | payer OTHER ==
[2021-12-27 14:23] LABS: CHOL/HDL RATIO 2.7; Cholesterol 181 mg/dL (50-200); HDL Cholesterol 66 mg/dL (>39); LDL/HDL RATIO 1.4; Low Density Lipoprotein Chol 95 mg/dL (0-110); Triglycerides 98 mg/dL (30-160); Very Low Density Lipoprot Chol 19 mg/dL (6-32)
== END ==
LOC: LAB 08:00 → LAB SHORT 08:00
PROVIDERS: Family Medicine
DX: E78.2 Mixed hyperlipidemia (principal)
CPT/HCPCS: 80061

== ENCOUNTER → 2022-02-07 | Outpatient (CLI) | payer OTHER ==
[2022-02-07 13:52] LABS: Valproic Acid 70.7 ug/mL (50.0-100.0)
== END ==
LOC: LAB SHORT 09:10
PROVIDERS: Psychiatry & Neurology Psychiatry
DX: Z51.81 Encounter for therapeutic drug level monitoring (principal)
CPT/HCPCS: 80164

== ENCOUNTER → 2022-02-16 | Outpatient (CLI) | payer OTHER ==
[2022-02-16 13:47] LABS: Albumin, Blood 3.4 g/dL (3.4-5.0); Anion Gap 9 mmol/L (6-16); Blood Urea Nitrogen 6 mg/dL (8-24); Bun/Creatinine Ratio 8.8 (12.0-20.0); CO2, Blood 27 mmol/L (21-32); Calcium, Blood 8.9 mg/dL (8.5-10.1); Chloride, Blood 97 mmol/L (98-108); Creatinine, Blood 0.69 mg/dL (0.60-1.20); Glomerular Filtration Rate >60 (60-); Glucose, Blood 94 mg/dL (70-99); Phosphorus, Blood 2.8 mg/dL (2.5-4.9); Potassium, Blood 4.7 mmol/L (3.5-5.5); Sodium, Blood 133 mmol/L (136-145)
== END ==
LOC: LAB SHORT 09:32
PROVIDERS: Internal Medicine Nephrology
DX: N18.30 Chronic kidney disease, stage 3 unspecified (principal); D63.1 Anemia in chronic kidney disease
CPT/HCPCS: 80069; 85018

== ENCOUNTER → 2022-06-18 | Outpatient (CLI) | payer OTHER ==
[2022-06-18 20:03] LABS: Albumin, Blood 3.7 g/dL (3.4-5.0); Anion Gap 5 mmol/L (6-16); Blood Urea Nitrogen 12 mg/dL (8-24); Bun/Creatinine Ratio 16.2 (12.0-20.0); CO2, Blood 30 mmol/L (21-32); Calcium, Blood 9.5 mg/dL (8.5-10.1); Chloride, Blood 100 mmol/L (98-108); Creatinine, Blood 0.74 mg/dL (0.60-1.20); Glomerular Filtration Rate 104 (60-); Glucose, Blood 87 mg/dL (70-99); Phosphorus, Blood 2.9 mg/dL (2.5-4.9); Potassium, Blood 4.6 mmol/L (3.5-5.5); Sodium, Blood 135 mmol/L (136-145)
== END | disposition home or self-care (01) ==
LOC: LAB 07:45 → LAB SHORT 07:45
PROVIDERS: Internal Medicine Nephrology
DX: N18.30 Chronic kidney disease, stage 3 unspecified (principal); D63.1 Anemia in chronic kidney disease
CPT/HCPCS: 80069; 85018

== ENCOUNTER → 2022-06-27 | Outpatient (CLI) | payer OTHER ==
[2022-06-27 11:35] LABS: Valproic Acid 88.4 ug/mL (50.0-100.0)
== END | disposition home or self-care (01) ==
LOC: LAB SHORT 07:45
PROVIDERS: Psychiatry & Neurology Psychiatry
DX: Z51.81 Encounter for therapeutic drug level monitoring (principal); Z79.899 Other long term (current) drug therapy
CPT/HCPCS: 80164

== ENCOUNTER 2022-10-27 11:14 | Emergency (ER) | payer OTHER ==
[~2022-10-27] VITALS: Ht 175.3 cm; Wt 90.7 kg
[2022-10-27 12:17] LABS: Source, Urine Voided
[2022-10-27 12:22] LABS: Appearance, Urine Clear (Clear); Bilirubin, Urine Neg (Neg); Blood, Urine 1+ (Neg); Color, Urine Yellow (P-Yellow); Glucose Qualitative, Urine Neg (Neg); Ketones, Urine Neg (Neg); Leukocyte Esterase, Urine Neg (Neg); Nitrite, Urine Neg (Neg); Protein, Urine Neg (Neg); Specific Gravity, Urine 1.015 (1.003-1.022); Urobilinogen, Urine NORM (Normal)
[2022-10-27 12:31] LABS: Bacteria Not Seen /hpf; Red Blood Cells, Urine 0-2 /hpf (0-2); Squamous Epithelial Cells Few /hpf (Few); White Blood Cells, Urine 0-2 /hpf (0-5)
[2022-10-27 12:32] LABS: Mucus Light (0-Heavy)
[2022-10-27 13:15] LABS: Albumin, Blood 3.3 g/dL (3.4-5.0); Albumin/Globulin Ratio 0.8 (0.8-1.8); Bilirubin, Total 0.5 mg/dL (0.1-1.0); Calcium, Blood 9.1 mg/dL (8.5-10.1); Creatinine, Blood 0.73 mg/dL (0.60-1.20); Globulin, Blood 3.9 g/dL (2.2-4.0); Potassium, Blood 5.3 mmol/L (3.5-5.5); Total Protein, Blood 7.2 g/dL (6.4-8.2)
[2022-10-27 14:14] LABS: BASOPHILS ABSOLUTE AUTO 0.07 K/mm3 (0.00-0.23); BASOPHILS PERCENT AUTO 1 % (0-2); EOSINOPHILS ABSOLUTE AUTO 0.09 K/mm3 (0.00-0.68); EOSINOPHILS PERCENT AUTO 1 % (0-6); Hematocrit 44.8 % (37.0-53.0); Hemoglobin 15.6 g/dL (13.5-17.5); IMMATURE GRAN ABSOLUTE AUTO 0.05 K/mm3 (0.00-0.10); IMMATURE GRAN PERCENT AUTO 1 % (0-1); LYMPHOCYTES ABSOLUTE AUTO 2.36 K/mm3 (0.84-5.20); LYMPHOCYTES PERCENT AUTO 27 % (21-46); MONOCYTES ABSOLUTE AUTO 2.18 K/mm3 (0.16-1.47); MONOCYTES PERCENT AUTO 25 % (4-13); Mean Corpuscular HGB 33.5 pg (26.0-34.0); Mean Corpuscular HGB Conc 34.8 g/dL (31.5-36.5); Mean Corpuscular Volume 96 fL (80-100); Mean Platelet Volume 10.9 fL (9.1-12.4); NEUTROPHILS ABSOLUTE AUTO 3.97 K/mm3 (1.96-9.15); NEUTROPHILS PERCENT AUTO 46 % (41-73); Platelet Count 320 K/mm3 (150-400); RDW Standard Deviation 46.5 fL (35.1-46.3); Red Blood Cell Count 4.65 M/mm3 (4.30-5.90); White Blood Cell Count 8.72 K/mm3 (4.00-11.30)
[2022-10-27] MEDS ORDERED: PRED20 PO (15:56)
== END 2022-10-27 17:30 | disposition home or self-care (01) ==
LOC: ER 11:14
PROVIDERS: Emergency Medicine
DX: U07.1 COVID-19 (principal); J12.82 Pneumonia due to coronavirus disease 2019; J44.1 Chronic obstructive pulmonary disease with (acute) exacerbation; Z88.2 Allergy status to sulfonamides; Z91.011 Allergy to milk products; Z79.899 Other long term (current) drug therapy; Z87.891 Personal history of nicotine dependence
CPT/HCPCS: 36415; 71045; 80053; 81001; 85025; 93005; 93010; A9270; J7030

== ENCOUNTER 2022-10-28 16:40 | Emergency (ER) | payer OTHER ==
[~2022-10-28] VITALS: Ht 180.3 cm; Wt 108.9 kg
[~2022-10-28 16:40] MED LIST changes: +PRED20 PO
[2022-10-28 17:26] LABS: Hematocrit 42.2 % (37.0-53.0); Hemoglobin 14.7 g/dL (13.5-17.5); Mean Corpuscular HGB 33.8 pg (26.0-34.0); Mean Corpuscular HGB Conc 34.8 g/dL (31.5-36.5); Mean Corpuscular Volume 97 fL (80-100); Mean Platelet Volume 10.3 fL (9.1-12.4); Platelet Count 281 K/mm3 (150-400); RDW Coefficient Variation 13.3 % (11.7-14.2); RDW Standard Deviation 47.8 fL (35.1-46.3); Red Blood Cell Count 4.35 M/mm3 (4.30-5.90)
[2022-10-28 17:28] LABS: White Blood Cell Count 9.71 K/mm3 (4.00-11.30)
[2022-10-28 17:38] LABS: Albumin, Blood 3.2 g/dL (3.4-5.0); Albumin/Globulin Ratio 0.8 (0.8-1.8); Bilirubin, Total 0.3 mg/dL (0.1-1.0); Bun/Creatinine Ratio 13.7 (12.0-20.0); Calcium, Blood 8.7 mg/dL (8.5-10.1); Creatinine, Blood 0.66 mg/dL (0.60-1.20); Globulin, Blood 3.9 g/dL (2.2-4.0); Potassium, Blood 4.1 mmol/L (3.5-5.5); Total Protein, Blood 7.1 g/dL (6.4-8.2)
[2022-10-28 17:47] LABS: BASOPHILS PERCENT MAN 0 % (0-2); EOSINOPHILS ABSOLUTE MAN 0.29 K/mm3 (0.00-0.68); EOSINOPHILS PERCENT MAN 3 % (0-6); LYMPHOCYTES % ATYPICAL MANUAL 2 % (0-0); LYMPHOCYTES ABSOLUTE MAN 2.33 K/mm3 (0.84-5.20); LYMPHOCYTES PERCENT MAN 22 % (21-46); MONOCYTES ABSOLUTE MAN 2.23 K/mm3 (0.16-1.47); MONOCYTES PERCENT MAN 23 % (4-13); NEUTROPHILS ABSOLUTE MAN 4.85 K/mm3 (1.96-9.15); SEG NEUTROPHILS PERCENT MAN 50 % (41-73); TOTAL CELLS COUNTED 100
== END 2022-10-28 20:48 | disposition home or self-care (01) ==
LOC: ER 16:40
PROVIDERS: Student in an Organized Health Care Education/Training Program
DX: U07.1 COVID-19 (principal); J44.9 Chronic obstructive pulmonary disease, unspecified; Z88.2 Allergy status to sulfonamides; Z91.011 Allergy to milk products; Z79.899 Other long term (current) drug therapy; Z79.82 Long term (current) use of aspirin; Z99.81 Dependence on supplemental oxygen
CPT/HCPCS: 36415; 71045; 80053; 83880; 84484; 85025

== ENCOUNTER → 2022-12-19 | Outpatient (CLI) | payer OTHER ==
[2022-12-19 11:47] LABS: Valproic Acid 92.7 ug/mL (50.0-100.0)
== END | disposition home or self-care (01) ==
LOC: LAB SHORT 08:35
PROVIDERS: Psychiatry & Neurology Psychiatry
DX: Z51.81 Encounter for therapeutic drug level monitoring (principal); Z79.899 Other long term (current) drug therapy
CPT/HCPCS: 80164

== ENCOUNTER → 2023-01-17 | Outpatient (CLI) | payer OTHER ==
[2023-01-17 21:44] LABS: Albumin, Blood 3.3 g/dL (3.4-5.0); Alk Phos 48 U/L (50-136); Anion Gap 4 mmol/L (6-16); Aspartate Aminotrans (AST/SGOT 15 U/L (12-37); Bilirubin, Direct 0.2 mg/dL (0.0-0.3); Bilirubin, Indirect 0.4 mg/dL (0.1-0.7); Bilirubin, Total 0.6 mg/dL (0.1-1.0); Blood Urea Nitrogen 7 mg/dL (8-24); Bun/Creatinine Ratio 9.7 (12.0-20.0); CHOL/HDL RATIO 2.1; CO2, Blood 30 mmol/L (21-32); Calcium, Blood 8.7 mg/dL (8.5-10.1); Chloride, Blood 101 mmol/L (98-108); Cholesterol 155 mg/dL (50-200); Creatinine, Blood 0.72 mg/dL (0.60-1.20); Globulin, Blood 3.3 g/dL (2.2-4.0); Glomerular Filtration Rate 105 (60-); Glucose, Blood 85 mg/dL (70-99); HDL Cholesterol 73 mg/dL (>39); LDL/HDL RATIO 0.9; Low Density Lipoprotein Chol 65 mg/dL (0-110); Phosphorus, Blood 2.9 mg/dL (2.5-4.9); Potassium, Blood 4.3 mmol/L (3.5-5.5); Sodium, Blood 135 mmol/L (136-145); Total Protein, Blood 6.6 g/dL (6.4-8.2); Triglycerides 84 mg/dL (30-160); Very Low Density Lipoprot Chol 16 mg/dL (6-32)
[2023-01-17 21:53] LABS: Alanine Aminotransfer (ALT/SGP 16 U/L (12-78)
[2023-01-17 22:11] LABS: Prostate Specific Antigen 0.548 ng/mL (0.000-4.000)
== END | disposition home or self-care (01) ==
LOC: LAB SHORT 08:59
PROVIDERS: Family Medicine; Internal Medicine Nephrology
DX: N40.0 Benign prostatic hyperplasia without lower urinary tract symptoms (principal); N18.30 Chronic kidney disease, stage 3 unspecified; D63.1 Anemia in chronic kidney disease; E78.00 Pure hypercholesterolemia, unspecified; R76.9 Abnormal immunological finding in serum, unspecified; R94.5 Abnormal results of liver function studies; R94.6 Abnormal results of thyroid function studies
CPT/HCPCS: 80053; 80061; 82248; 84100; 84153; 84443; 85018

== ENCOUNTER 2023-02-25 10:55 | Inpatient (IN) | payer OTHER ==
[~2023-02-25] VITALS: Ht 180.3 cm; Wt 96.7 kg
[2023-02-25 11:37] LABS: BASOPHILS ABSOLUTE AUTO 0.11 K/mm3 (0.00-0.23); BASOPHILS PERCENT AUTO 0 % (0-2); EOSINOPHILS PERCENT AUTO 0 % (0-6); Hematocrit 44.9 % (37.0-53.0); IMMATURE GRAN ABSOLUTE AUTO 0.48 K/mm3 (0.00-0.10); IMMATURE GRAN PERCENT AUTO 2 % (0-1); LYMPHOCYTES ABSOLUTE AUTO 1.36 K/mm3 (0.84-5.20); LYMPHOCYTES PERCENT AUTO 5 % (21-46); MONOCYTES ABSOLUTE AUTO 3.07 K/mm3 (0.16-1.47); MONOCYTES PERCENT AUTO 12 % (4-13); Mean Corpuscular HGB 33.6 pg (26.0-34.0); Mean Corpuscular HGB Conc 33.4 g/dL (31.5-36.5); Mean Corpuscular Volume 101 fL (80-100); Mean Platelet Volume 10.5 fL (9.1-12.4); NEUTROPHILS ABSOLUTE AUTO 21.35 K/mm3 (1.96-9.15); NEUTROPHILS PERCENT AUTO 81 % (41-73); Platelet Count 284 K/mm3 (150-400); RDW Coefficient Variation 13.6 % (11.7-14.2); RDW Standard Deviation 50.9 fL (35.1-46.3); Red Blood Cell Count 4.46 M/mm3 (4.30-5.90); White Blood Cell Count 26.37 K/mm3 (4.00-11.30)
[2023-02-25 11:44] LABS: Albumin, Blood 3.2 g/dL (3.4-5.0); Albumin/Globulin Ratio 0.8 (0.8-1.8); Bilirubin, Total 0.5 mg/dL (0.1-1.0); Bun/Creatinine Ratio 13.5 (12.0-20.0); Calcium, Blood 9.3 mg/dL (8.5-10.1); Creatinine, Blood 0.67 mg/dL (0.60-1.20); Globulin, Blood 4.1 g/dL (2.2-4.0); Total Protein, Blood 7.3 g/dL (6.4-8.2)
[2023-02-25 12:37] LABS: Influenza A, PCR NEGATIVE (NEGATIVE); Influenza B, PCR NEGATIVE (NEGATIVE); Resp Syncytial Virus, PCR NEGATIVE (NEGATIVE); SARS-Cov-2 (COVID-19) PCR, MMC NEGATIVE (NEGATIVE)
[2023-02-25 16:01] VITALS: BP 107/69
--- NOTE | 2023-02-25 17:46 | NUR ---
SHIFT SUMMARY/ADMISSION NOTE PT ARRIVED TO MEDICAL FLOOR FROM ED AT APPROX 1545. PT IS AxOx4 WITH A MILD-MODERATE MENTATION DEFICIT R/T A PREVIOUS TBI. PT IS PLEASANT AND COOPERATIVE WITH CARE. PER JOSE ISBELL AT [facility], WHERE THE PATIENT RESIDES, HE NORMALLY ONLY NEEDS MINOR ASSISTANCE WITH HIS ADL'S AND DECISION MAKING. PT HAS SLOWED SPEECH AT BASELINE. THE PATIENT HAS PRESENTED WITH GENERAL WEAKNESS AND SEEMS TO BE NEEDING MODERATE HELP WITH TOILETING, EATING/DRINKING, AND CHANGING CLOTHES. ADMISSION IS COMPLETE. PT REPORTED A HEADACHE THIS AFTERNOON, WHICH HE WAS MEDICATED PER EMAR. PT IS CURRENTLY RESTING IN BED WATCHING TV. HE DENIES ANY NEEDS AT THIS TIME. FAMILY NOTIFIED OF HIS ADMISSION. BED ALARM ON FOR SAFETY AND CALL LIGHT IN REACH.
[2023-02-25 19:48] VITALS: BP 101/63
[2023-02-26 04:39] VITALS: BP 107/70
[2023-02-26 05:13] LABS: BASOPHILS ABSOLUTE AUTO 0.09 K/mm3 (0.00-0.23); BASOPHILS PERCENT AUTO 0 % (0-2); EOSINOPHILS ABSOLUTE AUTO 0.08 K/mm3 (0.00-0.68); EOSINOPHILS PERCENT AUTO 0 % (0-6); Hematocrit 42.1 % (37.0-53.0); Hemoglobin 13.7 g/dL (13.5-17.5); IMMATURE GRAN ABSOLUTE AUTO 0.21 K/mm3 (0.00-0.10); IMMATURE GRAN PERCENT AUTO 1 % (0-1); LYMPHOCYTES ABSOLUTE AUTO 2.96 K/mm3 (0.84-5.20); LYMPHOCYTES PERCENT AUTO 11 % (21-46); MONOCYTES ABSOLUTE AUTO 3.89 K/mm3 (0.16-1.47); MONOCYTES PERCENT AUTO 14 % (4-13); Mean Corpuscular HGB 33.1 pg (26.0-34.0); Mean Corpuscular HGB Conc 32.5 g/dL (31.5-36.5); Mean Corpuscular Volume 102 fL (80-100); Mean Platelet Volume 10.9 fL (9.1-12.4); NEUTROPHILS ABSOLUTE AUTO 20.53 K/mm3 (1.96-9.15); NEUTROPHILS PERCENT AUTO 74 % (41-73); Platelet Count 273 K/mm3 (150-400); RDW Coefficient Variation 13.7 % (11.7-14.2); Red Blood Cell Count 4.14 M/mm3 (4.30-5.90); White Blood Cell Count 27.76 K/mm3 (4.00-11.30)
--- NOTE | 2023-02-26 05:55 | NUR ---
PT DOES NOT CALL FOR NEEDS, Q 2HR CHECKS. 2 X ASSIST FOR BSC PT IS VERY WEAK AND UNSTABLE. 7L NC, PT PULLS TUBING OFF AT TIMES AND DESATS QUICKLY INTO LOW 80'S, ABLE TO RECOVER QUICKLY WHEN O2 PLACED CORRECTLY. C/O HEADACHE EARLY AM, TYLENOL GIVEN WITH GOOD RESULTS. PRODUCTIVE COUGH, INCREASE WITH AMBULATION/OOB.
[2023-02-26 06:01] LABS: Albumin, Blood 2.7 g/dL (3.4-5.0); Albumin/Globulin Ratio 0.7 (0.8-1.8); Bilirubin, Total 0.7 mg/dL (0.1-1.0); Bun/Creatinine Ratio 11.4 (12.0-20.0); Calcium, Blood 8.5 mg/dL (8.5-10.1); Creatinine, Blood 0.61 mg/dL (0.60-1.20); Globulin, Blood 3.9 g/dL (2.2-4.0); Total Protein, Blood 6.6 g/dL (6.4-8.2)
[2023-02-26 07:42] VITALS: BP 97/59
[2023-02-26] MEDS ORDERED: BACL10 PO (11:19)
[2023-02-26] MEDS ORDERED: Norco 5-325 Ta1 EACH PO (11:20)
--- NOTE | 2023-02-26 15:40 | NUR ---
Spoke with ST Mahmood earlier today and discussed case. Pt has history of recurrent aspiration PNA and is high risk for continued aspiration. Pt adamant against alternate forms of nutrition. Pt may benefit from advanced care plan and code status. Pt sitting in chair and is A&OX4. Engaged in therpaeutic conversation regarding code status wishes. Educated on life sustaining treatments including risks and implications to CPR. Pt reports wishes are to remain a Full Code. Offered therapeutic listening as Pt reports having sibblings he is close to and children that do not live local. He reports speaking with them on occasion. Pt also reports living at [facility] and has adequate care. Did some brief gentle discussion at beginning of visit on planning for the future as aspiration continues. Ended visit to allow Pt to rest. Palliative Care will remain available
[2023-02-26 15:42] VITALS: BP 103/67
--- NOTE | 2023-02-26 16:44 | NUR ---
END OF SHIFT NOTE PT ALERT & ORIENTED X4, VERY PLESANT AND COOPERATIVE. PER SPEECH THERAPIST PT WAS CHANGED TO SOFT MECHANICAL DIET AND HONEY THICK LIQUEDS. PT TOOK ORAL PILLS WITH APPLESAUSE. PT WORKED WITH OT AND PT AND AMBULATED SHORT DISTANCE IN ROOM WITH WALKER, PT ON 6 L OF O2 AND DESATS BUT RECOVERS QUICKLY WITH REST. HAS PRODUCTIVE COUGH AND GIVEN SUCTION TO PLACE IN SIDE OF MOUTH TO REMOVE NEEDED. TRANSFERS TO COMMODE WITH 1 PERSON ASSIST AND IS CONTINENT. PT COMPLAINED OF HEADACHE AND NECK PAIN AND WAS GIVEN TYLENOL. PT WAS UP IN CHAIR FOR MUCH OF THE DAY AND REQUIRED ASSISTANCE WHEN EATING. CURRENTLY PT IS LYIMG IM BED WITH HOB ELEVATED, WATCHING TV AND CALL LIGHT WITHIN REACH.
--- NOTE | 2023-02-26 17:50 | NUR ---
REVIEWED CULLET CRUSHER AND WASHER DOUCMENTATION AND AGREE WITH HER NOTES AND ASSESSMENT OF THIS PATINET.
[2023-02-26 19:20] VITALS: BP 96/65
[2023-02-27 04:07] VITALS: BP 123/74
[2023-02-27 04:33] LABS: BASOPHILS ABSOLUTE AUTO 0.06 K/mm3 (0.00-0.23); BASOPHILS PERCENT AUTO 0 % (0-2); EOSINOPHILS ABSOLUTE AUTO 0.16 K/mm3 (0.00-0.68); EOSINOPHILS PERCENT AUTO 1 % (0-6); Hematocrit 39.4 % (37.0-53.0); Hemoglobin 13.1 g/dL (13.5-17.5); IMMATURE GRAN ABSOLUTE AUTO 0.08 K/mm3 (0.00-0.10); IMMATURE GRAN PERCENT AUTO 1 % (0-1); LYMPHOCYTES ABSOLUTE AUTO 1.94 K/mm3 (0.84-5.20); LYMPHOCYTES PERCENT AUTO 12 % (21-46); MONOCYTES ABSOLUTE AUTO 1.94 K/mm3 (0.16-1.47); MONOCYTES PERCENT AUTO 12 % (4-13); Mean Corpuscular HGB 33.2 pg (26.0-34.0); Mean Corpuscular HGB Conc 33.2 g/dL (31.5-36.5); Mean Corpuscular Volume 100 fL (80-100); Mean Platelet Volume 10.2 fL (9.1-12.4); NEUTROPHILS ABSOLUTE AUTO 12.37 K/mm3 (1.96-9.15); NEUTROPHILS PERCENT AUTO 75 % (41-73); Platelet Count 307 K/mm3 (150-400); RDW Coefficient Variation 13.5 % (11.7-14.2); Red Blood Cell Count 3.95 M/mm3 (4.30-5.90); White Blood Cell Count 16.55 K/mm3 (4.00-11.30)
[2023-02-27 04:54] LABS: Bun/Creatinine Ratio 10.9 (12.0-20.0); Calcium, Blood 8.4 mg/dL (8.5-10.1); Creatinine, Blood 0.55 mg/dL (0.60-1.20); Potassium, Blood 3.9 mmol/L (3.5-5.5)
--- NOTE | 2023-02-27 05:50 | NUR ---
PT C/O FEELING CONSTIPATED AT BEGINNING OF SHIFT, SUPP GIVEN AND LARGE BM. PT IS VERY WEAK AND BSC USED. PT REQUEST TO WALK TO BR, REMINDED PT THAT AT THIS TIME IT WAS UNSAFE TO WALK TO BR HE IS WEAK AND HIS O2 SATS DROP WITH EXERTION. O2 INCREASED TO 8-9L OVER NIGHT. FREQUENT CHECKS PT UNABLE TO FIND HIS CALL LIGHT AT TIMES. CALL LIGHT IS CLIPPED TO BED AND NEXT TO PT.
[2023-02-27 07:37] VITALS: BP 119/68
[2023-02-27 14:50] VITALS: BP 97/59
--- NOTE | 2023-02-27 18:00 | NUR ---
PATIENT A/OX3-4, VERY PLEASANT AND COOPERATIVE WITH CARE. LUNGS REMAINS COARSE WITH CRACKLES IN THE BASES, WEANED TO 4LO2 VIA NC. WORKED WITH PT/OT TODAY AND IS BALE TO WALK IN ROOM WITH FWW, GB AND 1 ASSIST. MAINTAINED SATS BETTER TODAY WITH ACTIVITY. LR INFUSING AT 125ML/HR. TOLERATING MECH SOFT DIET WITH HONEY THICK LIQUIDS. REQUIRES ASSISTANCE WITH MEALS. SKIN INTACT. CALL APPORPRIATELY FOR ASSISTANCE.
[2023-02-27 20:05] VITALS: BP 97/61
[2023-02-28 05:21] VITALS: BP 110/74
--- NOTE | 2023-02-28 05:50 | NUR ---
SHIFT SUMMARY- PT SITTING UP IN CHAIR DURING BEDSIDE REPORT- PT REPORTS HEADACHE CONTINUING- PT RECIEVED TYLENOL FROM DAYSHIFT RN=IV INFUSING WITHOUT PROBLEMS TO RIGHT HAND PT ON 4L O2 VIA NC, APPLIED ICE TO BACK OF NECK FOR HEAD/NECK PAIN- CALL TO [facility]G MENA RE: PT REQUESTING IMITREX- GAVE ONE DOSE WITH HS MEDS- PT TRANSFERRED FROM CHAIR TO BED WITH ASSISTANCE- PT FELL ASLEEP- 0230 PT REQUESTED TYLENOL AND BACLOFEN FOR NECK BACK HEAD PAIN- pt slept t/o night, bed low position, call light within reach, bed alarm in place
[2023-02-28 06:21] LABS: BASOPHILS ABSOLUTE AUTO 0.08 K/mm3 (0.00-0.23); BASOPHILS PERCENT AUTO 1 % (0-2); EOSINOPHILS ABSOLUTE AUTO 0.44 K/mm3 (0.00-0.68); EOSINOPHILS PERCENT AUTO 4 % (0-6); Hematocrit 41.9 % (37.0-53.0); Hemoglobin 13.8 g/dL (13.5-17.5); IMMATURE GRAN ABSOLUTE AUTO 0.04 K/mm3 (0.00-0.10); IMMATURE GRAN PERCENT AUTO 0 % (0-1); LYMPHOCYTES ABSOLUTE AUTO 3.43 K/mm3 (0.84-5.20); LYMPHOCYTES PERCENT AUTO 30 % (21-46); MONOCYTES ABSOLUTE AUTO 1.59 K/mm3 (0.16-1.47); MONOCYTES PERCENT AUTO 14 % (4-13); Mean Corpuscular HGB 33.7 pg (26.0-34.0); Mean Corpuscular HGB Conc 32.9 g/dL (31.5-36.5); Mean Corpuscular Volume 102 fL (80-100); Mean Platelet Volume 10.1 fL (9.1-12.4); NEUTROPHILS ABSOLUTE AUTO 5.81 K/mm3 (1.96-9.15); NEUTROPHILS PERCENT AUTO 51 % (41-73); Platelet Count 345 K/mm3 (150-400); RDW Coefficient Variation 13.8 % (11.7-14.2); RDW Standard Deviation 52.2 fL (35.1-46.3); White Blood Cell Count 11.39 K/mm3 (4.00-11.30)
[2023-02-28 06:31] LABS: Calcium, Blood 8.8 mg/dL (8.5-10.1); Creatinine, Blood 0.57 mg/dL (0.60-1.20); Potassium, Blood 3.8 mmol/L (3.5-5.5)
[2023-02-28 07:53] VITALS: BP 101/65
[2023-02-28 15:11] VITALS: BP 117/72
--- NOTE | 2023-02-28 18:00 | NUR ---
END OF SHIFT SUMMARY PT A&O X4, CALM, & COOPERATES WITH CARE. PT CONTINENT AND WILL USE URINAL OR GET UP TO COMMODE WITH 1 PERSON ASSIST. PT TOOK WALK DOWN THE HALLWAY WITH PT TODAY AND TOLERATED IT WELL. PT COMPLAINS OF HEADACHE. MODIFIED DIET, EATS WELL ASSISTED WITH SUPERVISION. HONEY THICK LIQUIDS. ORAL MEDICATIONS TAKEN WITH APPLESAUCE. PT'S PARENTS VISITED TODAY
[2023-02-28 20:09] VITALS: BP 133/77
[2023-03-01 05:19] VITALS: BP 126/86
--- NOTE | 2023-03-01 05:51 | NUR ---
PT SITTING UP IN CHAIR DURING BEDSIDE REPORT- PT REPORTS HEADACHE BETTER TODAY COMPARED TO YESTERDAY, IV INFUSING WITHOUT PROBLEMS, PT ON 4L VIA NC, RECOATER IN PLACE = O2 92-95%, PT UP TO BSC 3 TIMES IN SHIFT FOR BM- PT HAD BM ON 3RD ATTEMPT, PT TOOK HS MEDS WITHOUT PROBLES, PT REQUESTED MEDICATION FOR HEAD X2 T/O NIGHT,PT REQUESTED MEDICATION FOR HEADACHE TWICE IN THE SHIFT, BED LOW POSITION, CALL LIGHT WITHIN REACH, BED OR CHAIR ALARM IN PLACE
[2023-03-01 06:34] LABS: Hematocrit 41.8 % (37.0-53.0); Hemoglobin 13.7 g/dL (13.5-17.5); Mean Corpuscular HGB 33.6 pg (26.0-34.0); Mean Corpuscular HGB Conc 32.8 g/dL (31.5-36.5); Mean Corpuscular Volume 103 fL (80-100); Mean Platelet Volume 10.4 fL (9.1-12.4); Platelet Count 365 K/mm3 (150-400); RDW Coefficient Variation 13.6 % (11.7-14.2); RDW Standard Deviation 52.2 fL (35.1-46.3); Red Blood Cell Count 4.08 M/mm3 (4.30-5.90); White Blood Cell Count 11.39 K/mm3 (4.00-11.30)
[2023-03-01 06:57] LABS: Bun/Creatinine Ratio 7.3 (12.0-20.0); Creatinine, Blood 0.55 mg/dL (0.60-1.20); Potassium, Blood 3.8 mmol/L (3.5-5.5)
[2023-03-01 07:13] LABS: BASOPHILS ABSOLUTE MAN 0.11 K/mm3 (0.00-0.23); BASOPHILS PERCENT MAN 1 % (0-2); EOSINOPHILS ABSOLUTE MAN 0.45 K/mm3 (0.00-0.68); EOSINOPHILS PERCENT MAN 4 % (0-6); LYMPHOCYTES ABSOLUTE MAN 3.18 K/mm3 (0.84-5.20); LYMPHOCYTES PERCENT MAN 28 % (21-46); MONOCYTES ABSOLUTE MAN 1.82 K/mm3 (0.16-1.47); MONOCYTES PERCENT MAN 16 % (4-13); MYELOCYTE ABSOLUTE MAN 0.11 K/mm3 (0.00-0.00); MYELOCYTE PERCENT MAN 1 % (0-0); NEUTROPHILS ABSOLUTE MAN 5.69 K/mm3 (1.96-9.15); SEG NEUTROPHILS PERCENT MAN 50 % (41-73); TOTAL CELLS COUNTED 100
[2023-03-01 08:24] VITALS: BP 115/78
[2023-03-01 17:10] VITALS: BP 112/72
--- NOTE | 2023-03-01 17:32 | NUR ---
SHIFT SUMMARY- A@O X3. PT EXPRESSES NEEDS. PAIN MANAGED IF CONTINUOUS PRESCRIBED RX , SEE EMAR. LR RUNNING AT 125, TOLERATING WELL. SKIN GOOD. UP IN CHAIR X2. WILL CONTINUE TO MONITOR. CALL LIGHT IN REACH.
[2023-03-01 19:38] VITALS: BP 111/74
[2023-03-02 01:58] VITALS: BP 116/72
--- NOTE | 2023-03-02 03:50 | NUR ---
SHIFT UNREMARKABLE. PT TOOK 2100 MEDICATIONS WITHOUT DIFFICULTY. AOX4 ALTHOUGH SLOW AND MUMBLED SPEECH. PLEASANT AND COOPERATIVE WITH CARE. PT COMPLAINED OF PAIN EARLY IN SHIFT THAT WAS ALLEVIATED WITH PRN TYLENOL. LACTATED RINGERS RUNNING THROUGHOUT SHIFT, INTERRUPTED FOR ABX. SATTING >90% ON ROOM AIR. BED LOCKED IN LOWEST POSITION. CALL LIGHT LEFT WITHIN REACH.
[2023-03-02 04:47] LABS: BASOPHILS ABSOLUTE AUTO 0.12 K/mm3 (0.00-0.23); BASOPHILS PERCENT AUTO 1 % (0-2); EOSINOPHILS ABSOLUTE AUTO 0.72 K/mm3 (0.00-0.68); EOSINOPHILS PERCENT AUTO 5 % (0-6); Hematocrit 42.9 % (37.0-53.0); Hemoglobin 14.3 g/dL (13.5-17.5); IMMATURE GRAN ABSOLUTE AUTO 0.15 K/mm3 (0.00-0.10); IMMATURE GRAN PERCENT AUTO 1 % (0-1); LYMPHOCYTES ABSOLUTE AUTO 3.83 K/mm3 (0.84-5.20); LYMPHOCYTES PERCENT AUTO 25 % (21-46); MONOCYTES ABSOLUTE AUTO 2.17 K/mm3 (0.16-1.47); MONOCYTES PERCENT AUTO 14 % (4-13); Mean Corpuscular HGB 33.2 pg (26.0-34.0); Mean Corpuscular HGB Conc 33.3 g/dL (31.5-36.5); Mean Corpuscular Volume 100 fL (80-100); Mean Platelet Volume 9.9 fL (9.1-12.4); NEUTROPHILS ABSOLUTE AUTO 8.21 K/mm3 (1.96-9.15); NEUTROPHILS PERCENT AUTO 54 % (41-73); Platelet Count 403 K/mm3 (150-400); RDW Coefficient Variation 13.4 % (11.7-14.2); RDW Standard Deviation 49.9 fL (35.1-46.3); Red Blood Cell Count 4.31 M/mm3 (4.30-5.90)
[2023-03-02 05:01] LABS: Bun/Creatinine Ratio 11.1 (12.0-20.0); Calcium, Blood 9.1 mg/dL (8.5-10.1); Creatinine, Blood 0.54 mg/dL (0.60-1.20)
[2023-03-02 07:44] VITALS: BP 117/79
[2023-03-02 15:13] VITALS: BP 103/67
[2023-03-02] MEDS ORDERED: DIVA500EC PO (15:16)
--- NOTE | 2023-03-02 17:29 | NUR ---
SHIFT SUMMARY PT RESTING QUIETLY AT START OF SHIFT. WOKE EASILY FOR REPORT. UP TO CHAIR FOR MEALS. PT UP TO SHOWER AFTER BREAKFAST AND RETURNED TO CHAIR FOR A WHILE. MEDICATED PER EMAR FOR C/O GEORGE. HOME MED LIST OBTAINED FROM [facility] [place] AND UPDATED ON CHART. DR BURKETT NOTIFIED OF UPDATE; NEW ORDERS PLACED. EKG ORDERED AND OBTAINED, PRIOR TO NEW MEDICATION ORDERS. PT UP WITH P/T AND ABLE TO WALK IN HALLS, DOING BETTER EACH DAY. O2 BACK AT BASELINE, MAINTAINING O2 SATS. LUNGS T/O, MOSTLY CLEAR WITH SOME CRACKLES TO BASES. RECEIVING IV ABX PER EMAR. PT IS PLEASANT AND CO-OP WITH CARE. ABLE TO MAKE NEEDS KNOWN. BED AND CHAIR ALARM'S ON FOR SAFETY.
[2023-03-02 19:55] VITALS: BP 91/67
[2023-03-03 04:59] LABS: BASOPHILS ABSOLUTE AUTO 0.15 K/mm3 (0.00-0.23); BASOPHILS PERCENT AUTO 1 % (0-2); EOSINOPHILS ABSOLUTE AUTO 0.97 K/mm3 (0.00-0.68); EOSINOPHILS PERCENT AUTO 8 % (0-6); Hematocrit 42.5 % (37.0-53.0); Hemoglobin 14.1 g/dL (13.5-17.5); IMMATURE GRAN ABSOLUTE AUTO 0.14 K/mm3 (0.00-0.10); IMMATURE GRAN PERCENT AUTO 1 % (0-1); LYMPHOCYTES ABSOLUTE AUTO 3.73 K/mm3 (0.84-5.20); LYMPHOCYTES PERCENT AUTO 32 % (21-46); MONOCYTES ABSOLUTE AUTO 1.67 K/mm3 (0.16-1.47); MONOCYTES PERCENT AUTO 14 % (4-13); Mean Corpuscular HGB Conc 33.2 g/dL (31.5-36.5); Mean Corpuscular Volume 100 fL (80-100); Mean Platelet Volume 9.6 fL (9.1-12.4); NEUTROPHILS ABSOLUTE AUTO 4.91 K/mm3 (1.96-9.15); NEUTROPHILS PERCENT AUTO 43 % (41-73); Platelet Count 498 K/mm3 (150-400); RDW Coefficient Variation 13.5 % (11.7-14.2); Red Blood Cell Count 4.27 M/mm3 (4.30-5.90); White Blood Cell Count 11.57 K/mm3 (4.00-11.30)
--- NOTE | 2023-03-03 05:08 | NUR ---
SUMMARY: NO ACUTE EVENTS OVERNIGHT. VSS. IV ABX INFUSED. PATIENT DRANK A LOT OF THICKENED WATER AND VOIDED A LOT OVERNGIHT. PATIENT IS A 1X ASSIST IN AND OUT OF BED. IV REPLACED THIS AM. STRONG COUGH. PATIENT IS COUGHING UP AND EXPELLING MUCUS. BED ALARM ON. CALL LIGHT IN REACH. PATIENT ON 4L NC
[2023-03-03 05:19] VITALS: BP 102/72
[2023-03-03 05:23] LABS: Anion Gap Unable to Calculate mmol/L (6-16); Blood Urea Nitrogen 8 mg/dL (8-24); Bun/Creatinine Ratio 12.4 (12.0-20.0); CO2, Blood 35 mmol/L (21-32); Calcium, Blood 9.1 mg/dL (8.5-10.1); Chloride, Blood 103 mmol/L (98-108); Creatinine, Blood 0.64 mg/dL (0.60-1.20); Glomerular Filtration Rate 108 (60-); Glucose, Blood 88 mg/dL (70-99); Potassium, Blood 4.3 mmol/L (3.5-5.5); Sodium, Blood 137 mmol/L (136-145)
[2023-03-03 07:32] VITALS: BP 118/74
--- NOTE | 2023-03-03 14:11 | NUR ---
SHIFT SUMMARY PT AWAKE DURING SHIFT REPORT. PLEASANT AND CO-OP WITH CARE. UP TO CHAIR FOR ALL MEALS AND INBETWEEN. UP TO BTHRM NEEDED TO VOID AND HAVING LRG BM. DR BURKETT IN TO SEE PT AND DISCUSS PLAN OF CARE. HOME O2 EVAL ORDERED AND COMPLETED. PT ABLE TO AMBULATE IN RM AND HALLS, USING LESS O2 THAN BASELINE. PT THEN CLEARED FOR D/C BACK TO [facility]; HOWEVER, NO RN AVAILABLE TO RECEIVE PT TODAY. PT TO D/C TOMORROW. LUNGS T/O WITH CRACKLES IN BASES; OCCASSIONAL PC WELL. PT CONTINUES TO IMPROVE AND LOOKING FORWARD TO GOING HOME. MEDICATED FOR C/O GEORGE, WHICH PT REPORTS IS IMPROVING. CALL LT IN REACH.
[2023-03-03 15:19] VITALS: BP 93/62
[2023-03-03 19:43] VITALS: BP 107/62
[2023-03-04] VITALS (7 sets, daily range): BP systolic 93–104; BP diastolic 63–85
--- NOTE | 2023-03-04 05:55 | NUR ---
SUMMARY: NO ACUTE EVENTS OVERNIGHT. VSS. IV ABX INFUSED. PATIENT IS A 1X ASSIST IN AND OUT OF BED. STRONG COUGH. PATIENT IS COUGHING UP AND EXPELLING SPUTUM. BED ALARM ON. CALL LIGHT IN REACH. PATIENT ON 3L NC BACK TO BASELINE. WENT FOR WALK IN HALLWAY BEFORE BED. Plan to DC today.
--- NOTE | 2023-03-04 07:32 | NUR ---
PATIENTS OXYGEN SATURATION WAS 85-88% THIS MORNING, PRINCIPAL IOS DEVELOPER RN INCREASED HIS O2 LEVEL FROM 3L TO 6L AT 0645 AND CALLED RT FOR A BT. RT ASSESSED THE PATIENT AND FOUND HIM TO TO HAVE CRACKLES IN THE BASES OF HIS LUNGS, RT DID GIVE THE PATIENT A BT ALSO. PATIENT STATED HIS BREATHING FELT BETTER WHEN HE SAT UP IN BED. PATIENT IS ENCOURAGED TO DEEP BREATHE. DR. RUSSO NOTIFIED BY TELEPHONE OF SITUATION AND PATIENT'S CONDITION. DR. RUSSO SAID HE WOULD COME UP AND ASSESS THE PATIENT. WILL CONTINUE TO MONITOR
--- NOTE | 2023-03-04 16:40 | NUR ---
patient is alert and oriented and cooperative with care. started this shift on 8L O2 via nc. he has been able to titrated down to 3L O2 via nc this afternoon. IV lasix was given this shift. patient still has crackles in his lung bases. he went for a walk in the halls. he is up to the chair for meals. uses the urinal independently. will continue to monitor
[2023-03-05 04:50] VITALS: BP 106/75
[2023-03-05 04:56] LABS: BASOPHILS PERCENT AUTO 1 % (0-2); EOSINOPHILS ABSOLUTE AUTO 0.69 K/mm3 (0.00-0.68); EOSINOPHILS PERCENT AUTO 6 % (0-6); Hematocrit 41.1 % (37.0-53.0); Hemoglobin 13.4 g/dL (13.5-17.5); IMMATURE GRAN ABSOLUTE AUTO 0.11 K/mm3 (0.00-0.10); IMMATURE GRAN PERCENT AUTO 1 % (0-1); LYMPHOCYTES ABSOLUTE AUTO 3.24 K/mm3 (0.84-5.20); LYMPHOCYTES PERCENT AUTO 30 % (21-46); MONOCYTES ABSOLUTE AUTO 1.27 K/mm3 (0.16-1.47); MONOCYTES PERCENT AUTO 12 % (4-13); Mean Corpuscular HGB 32.7 pg (26.0-34.0); Mean Corpuscular HGB Conc 32.6 g/dL (31.5-36.5); Mean Corpuscular Volume 100 fL (80-100); Mean Platelet Volume 9.6 fL (9.1-12.4); NEUTROPHILS ABSOLUTE AUTO 5.34 K/mm3 (1.96-9.15); NEUTROPHILS PERCENT AUTO 50 % (41-73); Platelet Count 537 K/mm3 (150-400); RDW Coefficient Variation 13.5 % (11.7-14.2); RDW Standard Deviation 50.5 fL (35.1-46.3); White Blood Cell Count 10.75 K/mm3 (4.00-11.30)
[2023-03-05 05:23] LABS: Albumin, Blood 2.7 g/dL (3.4-5.0); Anion Gap 1 mmol/L (6-16); Blood Urea Nitrogen 14 mg/dL (8-24); Bun/Creatinine Ratio 20.6 (12.0-20.0); CO2, Blood 34 mmol/L (21-32); Calcium, Blood 8.7 mg/dL (8.5-10.1); Chloride, Blood 101 mmol/L (98-108); Creatinine, Blood 0.68 mg/dL (0.60-1.20); Glomerular Filtration Rate 106 (60-); Glucose, Blood 106 mg/dL (70-99); Magnesium, Blood 2.4 mg/dL (1.6-2.4); Phosphorus, Blood 3.5 mg/dL (2.5-4.9); Potassium, Blood 4.2 mmol/L (3.5-5.5); Sodium, Blood 136 mmol/L (136-145)
--- NOTE | 2023-03-05 06:02 | NUR ---
SUMMARY: PATIENT O2 LEVEL DROPPED WHILE HE WAS SLEEPING. PATIENT ON HIGH FLOW CANNULA AT 3L AT START OF SHIFT. PATIENT WAS DOING FINE, WENT FOR A WALK AND HAD A SPONGE BATH BEFORE BED. BUT THEN ONCE LAYING DOWN O2 BEGAN TO DROP. INCREASED O2 UP TO 7L WHILE SLEEPING TO MAINTAIN O2 LEVEL AROUND 91-92%. ONCE PATIENT WOKE UP THIS MORNING AND WAS SITTING UP NURSE WAS ABLE TO TO TITRATE O2 BACK TO 3.5L. PATIENT CURRENTLY SITTING UP IN BED RESTING. BED ALARM ON, CALL LIGHT IN REACH.
[2023-03-05 07:41] VITALS: BP 98/66
[2023-03-05] MEDS ORDERED: GUAI600T33 PO (11:41)
[2023-03-05] MEDS ORDERED: AMOCLA875 PO (11:42)
[2023-03-05] MEDS ORDERED: BUME1 PO (11:42)
== END 2023-03-05 14:27 | disposition home or self-care (01) | DRG 871 ==
LOC: ER 10:55 → ERHOLD 13:28 → MEDS 13:28 → ENPENDDIS 03-05 10:01 → MEDS 03-05 14:27
PROVIDERS: Emergency Medicine; Family Medicine; ADMIT Internal Medicine
PROC: 3E03329 Introduction of Other Anti-infective into Peripheral Vein, Percutaneous Approach (ICD-10-PCS; principal; 2023-02-25)
PROC: 5A0935A Assistance with Respiratory Ventilation, Less than 24 Consecutive Hours, High Flow/Velocity Cannula (ICD-10-PCS; 2023-03-04)
DX: A41.9 Sepsis, unspecified organism (principal); J18.9 Pneumonia, unspecified organism; J69.0 Pneumonitis due to inhalation of food and vomit; J96.21 Acute and chronic respiratory failure with hypoxia; J44.0 Chronic obstructive pulmonary disease with (acute) lower respiratory infection; E87.20 Acidosis, unspecified; Z51.5 Encounter for palliative care; R65.20 Severe sepsis without septic shock; F03.90 Unspecified dementia, unspecified severity, without behavioral disturbance, psychotic disturbance, mood disturbance, and anxiety; G89.29 Other chronic pain; F32.A Depression, unspecified; G43.709 Chronic migraine without aura, not intractable, without status migrainosus; K74.60 Unspecified cirrhosis of liver; K59.09 Other constipation; E78.5 Hyperlipidemia, unspecified; I10 Essential (primary) hypertension; E11.9 Type 2 diabetes mellitus without complications; F25.9 Schizoaffective disorder, unspecified; N40.1 Benign prostatic hyperplasia with lower urinary tract symptoms; N39.498 Other specified urinary incontinence; M54.9 Dorsalgia, unspecified; R94.31 Abnormal electrocardiogram [ECG] [EKG]; Z20.822 Contact with and (suspected) exposure to COVID-19; Z98.890 Other specified postprocedural states; Z90.81 Acquired absence of spleen; Z88.2 Allergy status to sulfonamides; Z91.011 Allergy to milk products; Z79.51 Long term (current) use of inhaled steroids; Z87.820 Personal history of traumatic brain injury; Z99.81 Dependence on supplemental oxygen; Z79.82 Long term (current) use of aspirin; Z79.899 Other long term (current) drug therapy; Z79.891 Long term (current) use of opiate analgesic; Z79.01 Long term (current) use of anticoagulants; Z79.811 Long term (current) use of aromatase inhibitors; Z79.52 Long term (current) use of systemic steroids
CPT/HCPCS: 0241U; 36415; 71045; 80048; 80053; 80069; 83605; 83735; 84145; 85025; 87040; 87070; 87205; 92610; 93005; 93010; 94640; 94664; 94760; 94761; 94762; 96365; 96366; 96367; 97110; 97116; 97162; 97166; 97530; 97535; 99285-25; A9270; J0295; J0456; J0696; J1650; J1940; J7030; J7050; J7120

== ENCOUNTER → 2023-05-01 | Outpatient (CLI) | payer OTHER ==
[~2023-05-01] MED LIST changes: +AMOCLA875 PO; +BACL10 PO; +BUME1 PO; +DIVA500EC PO; +GUAI600T33 PO
[2023-05-01 13:42] LABS: Alanine Aminotransfer (ALT/SGP 17 U/L (12-78); Albumin, Blood 3.2 g/dL (3.4-5.0); Albumin/Globulin Ratio 0.7 (0.8-1.8); Alk Phos 53 U/L (50-136); Anion Gap 5 mmol/L (6-16); Aspartate Aminotrans (AST/SGOT 20 U/L (12-37); Bilirubin, Total 0.3 mg/dL (0.1-1.0); Blood Urea Nitrogen 8 mg/dL (8-24); Bun/Creatinine Ratio 10.3 (12.0-20.0); CHOL/HDL RATIO 2.7; CO2, Blood 30 mmol/L (21-32); Chloride, Blood 102 mmol/L (98-108); Cholesterol 184 mg/dL (50-200); Creatinine, Blood 0.77 mg/dL (0.60-1.20); Globulin, Blood 4.3 g/dL (2.2-4.0); Glomerular Filtration Rate 102 (60-); Glucose, Blood 90 mg/dL (70-99); HDL Cholesterol 67 mg/dL (>39); LDL/HDL RATIO 1.6; Low Density Lipoprotein Chol 105 mg/dL (0-110); Potassium, Blood 4.5 mmol/L (3.5-5.5); Sodium, Blood 137 mmol/L (136-145); Total Protein, Blood 7.5 g/dL (6.4-8.2); Triglycerides 60 mg/dL (30-160); Very Low Density Lipoprot Chol 12 mg/dL (6-32)
[2023-05-01 13:46] LABS: Prostate Specific Antigen 0.598 ng/mL (0.000-4.000)
[2023-05-01 13:47] LABS: Valproic Acid 71.4 ug/mL (50.0-100.0)
== END | disposition home or self-care (01) ==
LOC: LAB SHORT 07:00 → LAB 07:00
PROVIDERS: Family Medicine; Psychiatry & Neurology Psychiatry
DX: Z51.81 Encounter for therapeutic drug level monitoring (principal); E78.5 Hyperlipidemia, unspecified; N40.0 Benign prostatic hyperplasia without lower urinary tract symptoms; Z79.899 Other long term (current) drug therapy
CPT/HCPCS: 80053; 80061; 80164; 84153

== ENCOUNTER 2023-06-13 08:42 | Inpatient (IN) | payer OTHER ==
[2023-06-13] VITALS (18 sets, daily range): BP systolic 85–111; BP diastolic 57–75
[~2023-06-13] VITALS: Ht 175.3 cm; Wt 98.9 kg
[2023-06-13 09:25] LABS: Hematocrit 46.1 % (37.0-53.0); Hemoglobin 15.4 g/dL (13.5-17.5); Mean Corpuscular HGB 32.7 pg (26.0-34.0); Mean Corpuscular HGB Conc 33.4 g/dL (31.5-36.5); Mean Corpuscular Volume 98 fL (80-100); Platelet Count 364 K/mm3 (150-400); RDW Coefficient Variation 13.2 % (11.7-14.2); RDW Standard Deviation 48.3 fL (35.1-46.3); Red Blood Cell Count 4.71 M/mm3 (4.30-5.90); White Blood Cell Count 12.04 K/mm3 (4.00-11.30)
[2023-06-13] MEDS ORDERED: Amitriptyline H10 MG PO (09:35)
[2023-06-13 09:45] LABS: BASOPHILS ABSOLUTE MAN 0.24 K/mm3 (0.00-0.23); BASOPHILS PERCENT MAN 2 % (0-2); EOSINOPHILS PERCENT MAN 0 % (0-6); LYMPHOCYTES ABSOLUTE MAN 5.29 K/mm3 (0.84-5.20); LYMPHOCYTES PERCENT MAN 44 % (21-46); MONOCYTES PERCENT MAN 10 % (4-13); NEUTROPHILS ABSOLUTE MAN 5.29 K/mm3 (1.96-9.15); SEG NEUTROPHILS PERCENT MAN 44 % (41-73); TOTAL CELLS COUNTED 100
[2023-06-13 09:48] LABS: Albumin, Blood 3.3 g/dL (3.4-5.0); Albumin/Globulin Ratio 0.8 (0.8-1.8); Bilirubin, Total 0.5 mg/dL (0.1-1.0); Bun/Creatinine Ratio 8.6 (12.0-20.0); Calcium, Blood 8.5 mg/dL (8.5-10.1); Creatinine, Blood 0.7 mg/dL (0.60-1.20); Potassium, Blood 4.1 mmol/L (3.5-5.5); Total Protein, Blood 7.3 g/dL (6.4-8.2)
[2023-06-13 12:00] LABS: Influenza A, PCR NEGATIVE (NEGATIVE); Influenza B, PCR NEGATIVE (NEGATIVE); Resp Syncytial Virus, PCR NEGATIVE (NEGATIVE); SARS-Cov-2 (COVID-19) PCR, MMC NEGATIVE (NEGATIVE)
[2023-06-13 12:10] LABS: Base Excess Venous 2.7 mmol/L; Bicarbonate Venous 25.7 mmol/L (24.0-30.0); PCO2 Venous 53.4 mmHg (38-42); pH Blood Venous 7.34 (7.34-7.37)
--- NOTE | 2023-06-13 18:20 | NUR ---
[facility]: This RN called [facility] for updated medication list. Staff at facility verified that pt requires nectar thick liquids and mechanical soft diet.
--- NOTE | 2023-06-13 18:25 | NUR ---
FAMILY UPDATE: Pt's sister, Rama, called and notified of pt status.
--- NOTE | 2023-06-13 19:00 | NUR ---
ASSUMED CARE ASSUMED CARE OF PATIENT. AWAKE AND ALERT. EATING DINNER AT THIS TIME. SLOW VERBAL RESPONSE NOTED, BUT SPEECH IS CLEAR AND APPROPRIATE. MOVES ALL EXTREMITIES. BILATERAL UPPER EXTREMITY TREMORS NOTED. MONITOR SHOWS AFLUTTER, RATE 90s-100s. BP STABLE. ESMOLOL GTT AT 50MCG/KG/MIN. O2 4L NC. SATS STABLE. RESPIRATIONS EVEN AND UNLABORED. OCCASIONAL MOIST NPC. NS INFUSING AT 125MLS/HR PER ORDER. SEE SHIFT ASSESSMENT FOR FULL ASSESSMENT.
[2023-06-13] MEDS ORDERED: MIRALAX17 GM PO (19:03)
[2023-06-13] MEDS ORDERED: BACL10 PO (19:07)
[2023-06-13] MEDS ORDERED: CLOBET30L TOP (19:08)
[2023-06-13] MEDS ORDERED: BISA10S PR (19:08)
[2023-06-13] MEDS ORDERED: HALO.5 PO (19:09)
--- NOTE | 2023-06-13 19:29 | NUR ---
SHIFT SUMMARY: Pt admitted from ED to ICU this afternoon. Sukhdev is very plesant, A/O x 4; MICHAEL. Esmolol restarted. He was given tylenol for a headache. Pt was educated on risks associated with smoking and ignitious sources while in the hospital.
[2023-06-14] VITALS (53 sets, daily range): BP systolic 78–209; BP diastolic 48–137
[2023-06-14 04:20] LABS: Hematocrit 38.9 % (37.0-53.0); Mean Corpuscular HGB 32.5 pg (26.0-34.0); Mean Corpuscular HGB Conc 33.4 g/dL (31.5-36.5); Mean Corpuscular Volume 97 fL (80-100); Mean Platelet Volume 10.6 fL (9.1-12.4); Platelet Count 317 K/mm3 (150-400); RDW Coefficient Variation 13.4 % (11.7-14.2); RDW Standard Deviation 48.6 fL (35.1-46.3); White Blood Cell Count 9.89 K/mm3 (4.00-11.30)
[2023-06-14 04:33] LABS: Albumin, Blood 2.4 g/dL (3.4-5.0); Anion Gap 5 mmol/L (6-16); Blood Urea Nitrogen 8 mg/dL (8-24); Bun/Creatinine Ratio 10.6 (12.0-20.0); CO2, Blood 29 mmol/L (21-32); Calcium, Blood 7.7 mg/dL (8.5-10.1); Chloride, Blood 105 mmol/L (98-108); Creatinine, Blood 0.75 mg/dL (0.60-1.20); Glomerular Filtration Rate 103 (60-); Glucose, Blood 86 mg/dL (70-99); Magnesium, Blood 1.8 mg/dL (1.6-2.4); Phosphorus, Blood 3.7 mg/dL (2.5-4.9); Potassium, Blood 4.4 mmol/L (3.5-5.5); Sodium, Blood 139 mmol/L (136-145)
[2023-06-14 05:18] LABS: BASOPHILS PERCENT MAN 0 % (0-2); EOSINOPHILS ABSOLUTE MAN 0.39 K/mm3 (0.00-0.68); EOSINOPHILS PERCENT MAN 4 % (0-6); LYMPHOCYTES ABSOLUTE MAN 4.25 K/mm3 (0.84-5.20); LYMPHOCYTES PERCENT MAN 43 % (21-46); MONOCYTES ABSOLUTE MAN 1.38 K/mm3 (0.16-1.47); MONOCYTES PERCENT MAN 14 % (4-13); NEUTROPHILS ABSOLUTE MAN 3.85 K/mm3 (1.96-9.15); SEG NEUTROPHILS PERCENT MAN 39 % (41-73); TOTAL CELLS COUNTED 100
--- NOTE | 2023-06-14 06:05 | NUR ---
SHIFT SUMMARY NO ACUTE CHANGES. SLEPT INTERMITTENTLY. ROUSES EASILY TO STIMULI. MEDICATED WITH NORCO X 1 FOR C/O BACK PAIN/HEADACHE. ESMOLOL NOW AT 25MCG/KG/MIN. MONITOR SHOWS A-FLUTTER, RATE 80s-100s. BP STABLE. O2 4L NC. RESPIRATIONS EVEN AND UNLABORED. UPPER EXTREMITY TREMORS CONTINUE WHEN AWAKE. VOIDING WITHOUT DIFFICULTY. PATIENT EDUCATED ON RISK RE: IGNITION SOURCES AND RISK OF INJURY WHILE OXYGEN IS IN USE. PT DENIES SMOKING AND VERBALIZES UNDERSTANDING OF RISKS. WILL REPORT TO ONCOMING RN WHEN AVAILABLE.
--- NOTE | 2023-06-14 08:32 | NUR ---
0700 Assumed care. Patient is alert and oriented in conversation however does have a slow drawl and response with his words when talking. He has on 4l nc lungs are dim t/o. Patient has +bt x 4 quad. soft to palpate. Patient has 2 periph. IV's with esmolol going at 25 mcg/kg/min. Patient has a slight tremor to his left hand/arm greater than right hand/arm He has on his glasses this am watching tv. Patient stood at side of bed with one person assist to void in urinal. 1100+out Patient up in chair to eat breakfast.
--- NOTE | 2023-06-14 15:35 | NUR ---
UPDATE: PATIENT HAS BEEN UP OUT OF BED MOST OF THE DAY. HE DOES HAVE A WEAK STANCE AND IT IS HELPFUL TO HAVE A 2 PERSON ASSIST WHEN DOING BARBARA CARE OFF THE COMMODE. PATIENT'S HEART RATE IS DOWN TO LOW 100'S SO NOW THE ESMOLOL DRIP IS OFF. WILL CONTINUE TO FOLLOW.
--- NOTE | 2023-06-14 17:52 | NUR ---
SHIFT SUMMARY PATIENT HAS BEEN UP OUT OF BED MOST OF THE DAY. HE STARTED ON ESMOLOL AT THE BEGINNING OF THIS SHIFT AND IS NOW OFF. HE DID GET HIS PO METOPROLOL TODAY. DR RUSSO INFORMED OF HIS RHYTHM AFIB/AFLUTTER RATE LOW 100'S. PATIENT HAS ATE ALL HIS FOOD ON EACH TRAY WITHOUT DIFFICULTY. NO STRAW TO BE USED WITH HIS NECTAR THICK LIQUID. HE SWALLOWED HIS PILLS WITHOUT DIFFICULTY USING PUDDING. PATIENT IS ON HIS HOME 02 OF 4L NC. PATIENT HAS DIMINISHED LUNG SOUNDS IN THE BASES BILATERALLY AND OTHERWISE CLEAR LUNGS WITH GOOD PRODUCTIVE COUGH CLEAR TO SLIGHTLY CREAMY SECRETIONS OUT. ABDOMEN IS SOFT WITHOUT PAIN TO PALPATION, NO BM TODAY. HE DID VOID MULTIPLE TIMES AND IT IS SAFER FOR PATIENT TO USE THE BEDSIDE COMMODE. HE HAS GOOD PPP X 4 EXT. NO EDEMA. FAMILY HAS BEEN IN TWICE TODAY AND THE YUAN RN CALLED FOR AN UPDATE "SUKHI". FYI PATIENT IS NOT A SMOKER YET IS ON OXYGEN. HE DOES NOT HAVE ANY IGNITION SOURCES TO BE CONCERNED ABOUT AT THIS TIME. VISITORS FOR HIM ALSO ARE NOT SMOKERS. PATIENT HAS HAD HOURLY ROUNDED ON TODAY IF NOT MORE OFTEN THAN HOURLY. WILL GIVE REPORT TO NEXT SHIFT TO RESUME CARE. WHILE IN THE ICU TODAY.
[2023-06-15] VITALS (12 sets, daily range): BP systolic 74–146; BP diastolic 55–96
--- NOTE | 2023-06-15 06:17 | NUR ---
SHIFT SUMMARY NO ACUTE CHANGES. SLEPT INTERMITTENTLY. ROUSES EASILY TO STIMULI. MEDICATED WITH NORCO X 1 FOR C/O BACK PAIN/HEADACHE. MONITOR SHOWS A-FLUTTER, RATE 110-120s. BP STABLE. O2 4L NC. RESPIRATIONS EVEN AND UNLABORED. UPPER EXTREMITY TREMORS CONTINUE WHEN AWAKE. VOIDING WITHOUT DIFFICULTY. UP TO BR WITH WALKER AND STANDBY ASSIST. PATIENT EDUCATED ON RISK RE: IGNITION SOURCES AND RISK OF INJURY WHILE OXYGEN IS IN USE. PT DENIES SMOKING AND VERBALIZES UNDERSTANDING OF RISKS. HOURLY ROUNDING DONE. WILL REPORT TO ONCOMING RN WHEN AVAILABLE.
--- NOTE | 2023-06-15 17:45 | NUR ---
SUMMARY PT A/O X4. ABLE TO USE CALL LIGHT APPROPRIATELY AND MAKE NEEDS KNOWN. AMBULATES FROM BED TO CHAIR SEVERAL TIMES T/O THE DAY. USES FWW AND 1-2 PERSON ASSIST. METOPROLOL INCREASED TODAY AND HR DOWN TO 80'S-105 AND BP STABLE. PT HAS BLACKMAN SPUTUM THIS AFTERNOON, CXR DONE AND IV ABX STARTED. PT CHANGED TO MEDICAL STATUS AND TRANSFERED TO ROOM 228. NO SING OF DISTRESS PT LEAVES THE UNIT. NO SOURCE OF IGNITION, NO SMOKING, VAPING, OR OPEN FLAME.
--- NOTE | 2023-06-15 18:15 | NUR ---
PT ARRIVED TO UNIT FROM ICU VIA WHEELCHAIR. TRANSFERED TO RECLINER WITH 1 ASSIST AND FWW. PT [id number], SATS MID 90'S ON 4L NASAL CANULA. DENIES NEEDS AT THIS TIME. CALL LIGHT PROVIDED AND IN REACH.
[2023-06-16 03:33] VITALS: BP 95/70
[2023-06-16 03:41] VITALS: BP 104/75
[2023-06-16 05:19] LABS: BASOPHILS ABSOLUTE AUTO 0.08 K/mm3 (0.00-0.23); BASOPHILS PERCENT AUTO 1 % (0-2); EOSINOPHILS ABSOLUTE AUTO 0.63 K/mm3 (0.00-0.68); EOSINOPHILS PERCENT AUTO 7 % (0-6); Hematocrit 46.1 % (37.0-53.0); IMMATURE GRAN ABSOLUTE AUTO 0.02 K/mm3 (0.00-0.10); IMMATURE GRAN PERCENT AUTO 0 % (0-1); LYMPHOCYTES ABSOLUTE AUTO 4.44 K/mm3 (0.84-5.20); LYMPHOCYTES PERCENT AUTO 48 % (21-46); MONOCYTES ABSOLUTE AUTO 1.46 K/mm3 (0.16-1.47); MONOCYTES PERCENT AUTO 16 % (4-13); Mean Corpuscular HGB 32.5 pg (26.0-34.0); Mean Corpuscular HGB Conc 32.5 g/dL (31.5-36.5); Mean Corpuscular Volume 100 fL (80-100); Mean Platelet Volume 9.9 fL (9.1-12.4); NEUTROPHILS ABSOLUTE AUTO 2.68 K/mm3 (1.96-9.15); NEUTROPHILS PERCENT AUTO 29 % (41-73); Platelet Count 331 K/mm3 (150-400); RDW Coefficient Variation 13.6 % (11.7-14.2); RDW Standard Deviation 50.4 fL (35.1-46.3); Red Blood Cell Count 4.61 M/mm3 (4.30-5.90); White Blood Cell Count 9.31 K/mm3 (4.00-11.30)
[2023-06-16 06:02] LABS: Albumin, Blood 2.8 g/dL (3.4-5.0); Anion Gap 7 mmol/L (6-16); Blood Urea Nitrogen 11 mg/dL (8-24); Bun/Creatinine Ratio 15.8 (12.0-20.0); CO2, Blood 28 mmol/L (21-32); Calcium, Blood 8.1 mg/dL (8.5-10.1); Chloride, Blood 100 mmol/L (98-108); Glomerular Filtration Rate 105 (60-); Glucose, Blood 86 mg/dL (70-99); Potassium, Blood 4.9 mmol/L (3.5-5.5); Sodium, Blood 135 mmol/L (136-145)
[2023-06-16 07:12] VITALS: BP 105/77
[2023-06-16 15:05] VITALS: BP 146/73
--- NOTE | 2023-06-16 19:31 | NUR ---
SHIFT SUMMARY S/P A. FLUTTER, A/OX4, VSS, TOLERATING BASELINE DIET, PAIN MANAGED PER EMAR, MULTIPLE BM THIS SHIFT. DISCHARGE ORDER PUT IN BY MD BUT UNABLE TO SET UP TRANSFER TO HIS HOME FACILITY TODAY, PASSED ON THIS INFORMATION TO NOC RN TO GIVE TO DAY RN TOMORROW, PT C/O HIS NOSE FEELING DRY SO DISCUSSED ADDING A HUMIDIFYER TO HIS O2 LINE, PT REPORTS HAVING ONE AT HOME AND IT BEING HELPFUL SO ONE WAS SET UP FOR HIM TO PROVIDE COMFORT. PLAN TO DC TOMORROW. NO ACUTE EVENTS THIS SHIFT, CALL LIGHT IN REACH.
[2023-06-16 20:16] VITALS: BP 96/74
[2023-06-16 20:17] VITALS: BP 104/75
[2023-06-17 05:21] VITALS: BP 91/68
--- NOTE | 2023-06-17 06:29 | NUR ---
SHIFT SUMMARY NO CHANGES THROUGH THE NIGHT, PT IS A&O X4, CALLS FOR ASSISTANCE PRN, SBA, VSS, SPO2 >95% ON 4L O2 VIA NC, PT ENC TO DB&C, DENIES CP/PRESSURE, VOIDING WNL, PT IS SLEEPING THIS AM, RESP UNLABORED, CALL LIGHT IN REACH, WCTM & REPORT TO DAY RN.
[2023-06-17 07:08] VITALS: BP 100/67
[2023-06-17 09:43] VITALS: BP 103/69
[2023-06-17 14:22] VITALS: BP 101/65
--- NOTE | 2023-06-17 15:10 | NUR ---
CALLED REPORT TO JEFRY AT [facility]
--- NOTE | 2023-06-17 15:36 | NUR ---
PT LEFT UNIT IN WC. PACKET GIVEN TO TRANSPORTER. PT HAD POSSESSIONS IN BAG IN HAND.
== END 2023-06-17 15:40 | disposition home or self-care (01) | DRG 309 ==
LOC: ER 08:42 → SURS 14:57 → ICUE 14:57 → SURS 06-15 18:09
PROVIDERS: Emergency Medicine; Physician Assistant; ADMIT Family Medicine
DX: I48.92 Unspecified atrial flutter (principal); E87.20 Acidosis, unspecified; J96.11 Chronic respiratory failure with hypoxia; F03.92 Unspecified dementia, unspecified severity, with psychotic disturbance; J44.9 Chronic obstructive pulmonary disease, unspecified; R91.8 Other nonspecific abnormal finding of lung field; I95.9 Hypotension, unspecified; M54.9 Dorsalgia, unspecified; F25.9 Schizoaffective disorder, unspecified; I10 Essential (primary) hypertension; N40.1 Benign prostatic hyperplasia with lower urinary tract symptoms; N39.498 Other specified urinary incontinence; E78.5 Hyperlipidemia, unspecified; G89.29 Other chronic pain; K59.09 Other constipation; I48.91 Unspecified atrial fibrillation; Z20.822 Contact with and (suspected) exposure to COVID-19; F32.A Depression, unspecified; Z87.820 Personal history of traumatic brain injury; Z87.01 Personal history of pneumonia (recurrent); Z88.2 Allergy status to sulfonamides; Z91.011 Allergy to milk products; Z79.891 Long term (current) use of opiate analgesic; Z79.82 Long term (current) use of aspirin; Z90.81 Acquired absence of spleen; Z98.890 Other specified postprocedural states; Z79.01 Long term (current) use of anticoagulants; Z79.899 Other long term (current) drug therapy
CPT/HCPCS: 0241U; 36415; 71045; 80053; 80069; 82803; 82947; 83605; 83735; 83880; 84145; 84443; 84484; 85007; 85025; 85027; 87040; 87077; 92610; 93005; 93010; 93306; 94640; 94644; 94664; 94760; 96361; 96365; 96366; 99291-25; A9270; J0456; J0696; J1650; J3475; J7030; J7050; J7120

== ENCOUNTER → 2023-06-19 | Outpatient (CLI) | payer OTHER ==
[~2023-06-19] MED LIST changes: +Amitriptyline H10 MG PO; +CLOBET30L TOP
== END | disposition home or self-care (01) ==
LOC: LAB SHORT 12:51 → LAB 12:51
DX: N18.2 Chronic kidney disease, stage 2 (mild) (principal); D63.1 Anemia in chronic kidney disease; N25.81 Secondary hyperparathyroidism of renal origin; E55.9 Vitamin D deficiency, unspecified; E78.00 Pure hypercholesterolemia, unspecified; R76.9 Abnormal immunological finding in serum, unspecified; R94.5 Abnormal results of liver function studies; R94.6 Abnormal results of thyroid function studies
CPT/HCPCS: 85018

== ENCOUNTER → 2023-06-24 | Outpatient (CLI) | payer OTHER | LOC: LAB 13:04 | DX: N39.0 Urinary tract infection, site not specified (principal) ==

== ENCOUNTER → 2023-06-25 | Outpatient (CLI) | payer OTHER | LOC: LAB 11:55 | DX: R91.8 Other nonspecific abnormal finding of lung field (principal); C34.30 Malignant neoplasm of lower lobe, unspecified bronchus or lung ==

== ENCOUNTER 2023-06-26 11:02 | Emergency (ER) | payer OTHER | END 2023-06-26 15:01 | disposition home or self-care (01) | LOC: ER 11:02 | DX: I48.92 Unspecified atrial flutter (principal); J44.9 Chronic obstructive pulmonary disease, unspecified; G43.909 Migraine, unspecified, not intractable, without status migrainosus; Z88.2 Allergy status to sulfonamides; Z91.011 Allergy to milk products; Z79.899 Other long term (current) drug therapy; Z79.82 Long term (current) use of aspirin ==

== ENCOUNTER 2023-07-07 08:59 | Emergency (ER) | payer OTHER ==
[~2023-07-07] VITALS: Ht 182.9 cm; Wt 97.5 kg
[~2023-07-07 08:59] MED LIST changes: +Lisinopril2.5 MG PO
[2023-07-07 09:29] VITALS: BP 96/70
== END 2023-07-07 11:16 ==
LOC: ER 08:59
DX: M25.552 Pain in left hip (principal); M54.50 Low back pain, unspecified; G89.29 Other chronic pain; J44.9 Chronic obstructive pulmonary disease, unspecified; G43.909 Migraine, unspecified, not intractable, without status migrainosus; I48.92 Unspecified atrial flutter
CPT/HCPCS: 72170; 96372; 99283-25; J1885

== ENCOUNTER → 2023-08-21 | Outpatient (CLI) | payer OTHER ==
[2023-08-21 20:12] LABS: Albumin, Blood 2.9 g/dL (3.4-5.0); Anion Gap 8 mmol/L (6-16); Blood Urea Nitrogen 8 mg/dL (8-24); Bun/Creatinine Ratio 11.3 (12.0-20.0); CO2, Blood 27 mmol/L (21-32); Calcium, Blood 9.1 mg/dL (8.5-10.1); Chloride, Blood 95 mmol/L (98-108); Creatinine, Blood 0.71 mg/dL (0.60-1.20); Glomerular Filtration Rate 104 (60-); Glucose, Blood 44 mg/dL (70-99); Phosphorus, Blood 2.2 mg/dL (2.5-4.9); Potassium, Blood 5.8 mmol/L (3.5-5.5); Sodium, Blood 130 mmol/L (136-145)
== END ==
LOC: LAB 16:01 → LAB SHORT 16:01
PROVIDERS: Family Medicine
DX: N18.9 Chronic kidney disease, unspecified (principal)
CPT/HCPCS: 80069

== ENCOUNTER → 2023-08-29 | Outpatient (CLI) | payer OTHER ==
[2023-08-29 19:53] LABS: Albumin, Blood 2.8 g/dL (3.4-5.0); Anion Gap 7 mmol/L (6-16); Blood Urea Nitrogen 10 mg/dL (8-24); Bun/Creatinine Ratio 15.6 (12.0-20.0); CO2, Blood 28 mmol/L (21-32); Calcium, Blood 8.3 mg/dL (8.5-10.1); Chloride, Blood 92 mmol/L (98-108); Creatinine, Blood 0.64 mg/dL (0.60-1.20); Glomerular Filtration Rate 108 (60-); Glucose, Blood 97 mg/dL (70-99); Phosphorus, Blood 1.9 mg/dL (2.5-4.9); Potassium, Blood 4.5 mmol/L (3.5-5.5); Sodium, Blood 127 mmol/L (136-145)
== END ==
LOC: LAB 16:11 → LAB SHORT 16:11
PROVIDERS: Internal Medicine Nephrology
DX: N18.2 Chronic kidney disease, stage 2 (mild) (principal); D63.1 Anemia in chronic kidney disease
CPT/HCPCS: 80069